=== PATIENT | male | born 1950 | race Caucasian/White ===

== ENCOUNTER 2017-06-09 16:05 | Inpatient (IN) | payer MEDICARE, OTHER ==
[~2017-06-09] VITALS: Ht 193 cm; Wt 131.2 kg
[~2017-06-09 16:05] MED LIST: ACETAMIN325 MG PO; ALLOPURINOL300 MG PO; AMLODIPINE10 MG PO; BENAZEPRIL20 M1 OR; BL MAGNESIUM250 MG PO; CIPRO500 MG OR; CYMBALTA30 MG PO; DILAUDID2 MG OR; DOCUSATE CAL240 MG PO; DULERA1 AE1 IN; FEXOFENADINE180 MG PO; FLEXERIL OR; FLUTICASONE50 MCG; KEFLEX500 MG OR; LASIX 40 MG TAB40 MG PO; LISINOPRIL20 MG PO; LOPRESSOR25 MG PO; LORTAB5 OR; LOSARTAN POT50 MG PO; MAGNESIUM-OX400 MG PO; METOLAZONE5 MG PO; NAPROSYN500 MG OR; PERCOCET 10/31 COMBO PO; PRAMIPEXOLE0.25 MG PO; PRILOSEC20 MG PO; RESTORIL30 MG OR; SIMVASTATIN10 MG PO; SPIRONOLACT25 MG PO
[2017-06-09 17:07] LABS: HEMATOCRIT 28.7 % (39.0-50.0); HEMOGLOBIN 9.5 g/dl (14.0-18.0); IMMATURE GRANULOCYTES 0.5 % (0.0-1.0); MEAN CELL VOLUME 109.5 fL CALC (80.0-100.0); MEAN CORPUSCULAR HGB 36.3 pG CALC (26.0-32.0); MEAN CORPUSCULAR HGB CONC 33.1 g/L CALC (32.0-36.0); NEUT# 10.91 thou/uL (1.82-7.42); RED BLOOD COUNT 2.62 mill/uL (4.70-6.10); RED CELL DISTRI WIDTH 15.1 % (11.5-15.5)
[2017-06-09 17:27] LABS: ALKALINE PHOSPHATASE 79 u/l (38-126); ANION GAP 17 (6-22 (CALC)); BILIRUBIN, TOTAL 0.8 mg/dL (0.0-1.4); BUN 20 mg/dL (8-23); BUN/CREATININE RATIO 20 (12-20 (CALC)); CALCIUM 9.2 mg/dL (8.4-10.2); CARBON DIOXIDE 23 mmol/l (22-30); CHLORIDE 101 mmol/l (95-108); GFR > 60 ML/MIN (>=60 (CALC)); GFR FOR AFR.AMER. > 60 ML/MIN (>=60 (CALC)); GLUCOSE 110 mg/dL (82-115); POTASSIUM 3.5 mmol/l (3.5-5.1); SGOT/AST 68 u/l (19-48); SGPT/ALT 47 u/l (11-66); SODIUM 137 mmol/l (137-146); TOTAL PROTEIN 7.2 g/dL (6.3-8.2)
[2017-06-09 17:32] LABS: PROTHROMBIN TIME 10.6 SECONDS (9.0-12.5)
[2017-06-09] MEDS ORDERED: CLOPIDOGREL75 MG PO (18:13)
[2017-06-09] MEDS ORDERED: DULERA1 AER IN (18:14)
[2017-06-09 22:45] VITALS: BP 195/80
[2017-06-09 23:00] VITALS: BP 172/97
[2017-06-09 23:15] VITALS: BP 137/98
[2017-06-09 23:30] VITALS: BP 109/70
[2017-06-09 23:45] VITALS: BP 100/74
[2017-06-10] VITALS (23 sets, daily range): BP systolic 111–153; BP diastolic 65–86
[2017-06-10 05:33] LABS: HEMATOCRIT 26.4 % (39.0-50.0); HEMOGLOBIN 8.8 g/dl (14.0-18.0); MEAN CELL VOLUME 110.5 fL CALC (80.0-100.0); MEAN CORPUSCULAR HGB 36.8 pG CALC (26.0-32.0); MEAN CORPUSCULAR HGB CONC 33.3 g/L CALC (32.0-36.0); RED BLOOD COUNT 2.39 mill/uL (4.70-6.10); RED CELL DISTRI WIDTH 15.4 % (11.5-15.5)
[2017-06-10 05:36] LABS: ANION GAP 15 (6-22 (CALC)); BUN 17 mg/dL (8-23); BUN/CREATININE RATIO 20 (12-20 (CALC)); CALCIUM 8.5 mg/dL (8.4-10.2); CARBON DIOXIDE 23 mmol/l (22-30); CHLORIDE 105 mmol/l (95-108); CREATININE 0.9 mg/dL (0.7-1.3); GFR > 60 ML/MIN (>=60 (CALC)); GFR FOR AFR.AMER. > 60 ML/MIN (>=60 (CALC)); GLUCOSE 115 mg/dL (82-115); MAGNESIUM 2.2 mg/dL (1.6-2.3); POTASSIUM 3.5 mmol/l (3.5-5.1); SODIUM 140 mmol/l (137-146)
[2017-06-10 06:06] LABS: TSH, 3RD GENERATION 1.86 uIU/mL (0.47 - 4.68)
[2017-06-11] VITALS (10 sets, daily range): BP systolic 112–142; BP diastolic 61–91
[2017-06-11 05:33] LABS: HEMOGLOBIN 8.8 g/dl (14.0-18.0); MEAN CORPUSCULAR HGB 36.8 pG CALC (26.0-32.0); MEAN CORPUSCULAR HGB CONC 32.6 g/L CALC (32.0-36.0); RED BLOOD COUNT 2.39 mill/uL (4.70-6.10); RED CELL DISTRI WIDTH 15.6 % (11.5-15.5)
[2017-06-11 05:48] LABS: ANION GAP 15 (6-22 (CALC)); BUN 14 mg/dL (8-23); BUN/CREATININE RATIO 18 (12-20 (CALC)); CALCIUM 8.9 mg/dL (8.4-10.2); CARBON DIOXIDE 25 mmol/l (22-30); CHLORIDE 105 mmol/l (95-108); CREATININE 0.7 mg/dL (0.7-1.3); GFR > 60 ML/MIN (>=60 (CALC)); GFR FOR AFR.AMER. > 60 ML/MIN (>=60 (CALC)); GLUCOSE 100 mg/dL (82-115); MAGNESIUM 2.1 mg/dL (1.6-2.3); POTASSIUM 3.5 mmol/l (3.5-5.1); SODIUM 142 mmol/l (137-146)
[2017-06-12] VITALS (21 sets, daily range): BP systolic 115–171; BP diastolic 54–98
[2017-06-12 05:46] LABS: HEMOGLOBIN 8.5 g/dl (14.0-18.0); MEAN CELL VOLUME 111.6 fL CALC (80.0-100.0); MEAN CORPUSCULAR HGB 36.5 pG CALC (26.0-32.0); MEAN CORPUSCULAR HGB CONC 32.7 g/L CALC (32.0-36.0); RED BLOOD COUNT 2.33 mill/uL (4.70-6.10); RED CELL DISTRI WIDTH 15.4 % (11.5-15.5)
[2017-06-12 06:01] LABS: ANION GAP 14 (6-22 (CALC)); BUN 16 mg/dL (8-23); BUN/CREATININE RATIO 19 (12-20 (CALC)); CALCIUM 8.9 mg/dL (8.4-10.2); CARBON DIOXIDE 24 mmol/l (22-30); CHLORIDE 105 mmol/l (95-108); CREATININE 0.8 mg/dL (0.7-1.3); GFR > 60 ML/MIN (>=60 (CALC)); GFR FOR AFR.AMER. > 60 ML/MIN (>=60 (CALC)); GLUCOSE 112 mg/dL (82-115); POTASSIUM 3.7 mmol/l (3.5-5.1); SODIUM 140 mmol/l (137-146)
[2017-06-13] VITALS (9 sets, daily range): BP systolic 115–148; BP diastolic 68–96
[2017-06-13 05:48] LABS: HEMATOCRIT 27.2 % (39.0-50.0); HEMOGLOBIN 8.8 g/dl (14.0-18.0); IMMATURE GRANULOCYTES 0.9 % (0.0-1.0); MEAN CELL VOLUME 111.9 fL CALC (80.0-100.0); MEAN CORPUSCULAR HGB 36.2 pG CALC (26.0-32.0); MEAN CORPUSCULAR HGB CONC 32.4 g/L CALC (32.0-36.0); NEUT# 4.08 thou/uL (1.82-7.42); RED BLOOD COUNT 2.43 mill/uL (4.70-6.10); RED CELL DISTRI WIDTH 15.3 % (11.5-15.5)
[2017-06-13 06:01] LABS: ANION GAP 14 (6-22 (CALC)); BUN 14 mg/dL (8-23); BUN/CREATININE RATIO 15 (12-20 (CALC)); CALCIUM 9.2 mg/dL (8.4-10.2); CARBON DIOXIDE 27 mmol/l (22-30); CHLORIDE 106 mmol/l (95-108); CREATININE 0.9 mg/dL (0.7-1.3); GFR > 60 ML/MIN (>=60 (CALC)); GFR FOR AFR.AMER. > 60 ML/MIN (>=60 (CALC)); GLUCOSE 102 mg/dL (82-115); MAGNESIUM 1.8 mg/dL (1.6-2.3); SODIUM 143 mmol/l (137-146)
[2017-06-13] MEDS ORDERED: ACETAZOLAMIDE250 MG PO (10:35)
[2017-06-13] MEDS ORDERED: HYDRALAZINE50 MG PO (10:35)
[2017-06-14 04:00] VITALS: BP 147/89
[2017-06-14 07:34] VITALS: BP 164/84
[2017-06-14 07:38] LABS: ANION GAP 14 (6-22 (CALC)); BUN 14 mg/dL (8-23); BUN/CREATININE RATIO 14 (12-20 (CALC)); CALCIUM 9.1 mg/dL (8.4-10.2); CARBON DIOXIDE 29 mmol/l (22-30); CHLORIDE 103 mmol/l (95-108); GFR > 60 ML/MIN (>=60 (CALC)); GFR FOR AFR.AMER. > 60 ML/MIN (>=60 (CALC)); GLUCOSE 96 mg/dL (82-115); MAGNESIUM 1.8 mg/dL (1.6-2.3); POTASSIUM 3.6 mmol/l (3.5-5.1); SODIUM 142 mmol/l (137-146)
[2017-06-14] MEDS ORDERED: LASIX 40 MG TAB40 MG PO (10:31)
[2017-06-14] MEDS ORDERED: THIAMINE HCL100 MG PO (10:31)
[2017-06-14] MEDS ORDERED: ELIQUIS2.5 MG PO (10:31)
[2017-06-14] MEDS ORDERED: AUGMENTIN875TAB PO (10:33)
[2017-06-14] MEDS ORDERED: FLORASTOR250 M1 PO (10:33)
[2017-06-14] MEDS ORDERED: DOXYCYCL HYC100 MG PO (10:33)
[2017-06-14] MEDS ORDERED: METOPROL TAR100 MG PO (11:03)
[2017-06-14] MEDS ORDERED: CORDARONE/200 MG/TAB PO ×2 (11:03)
[2017-06-14] MEDS ORDERED: LIBRIUM25 M1 PO (11:03)
[2017-06-14] MEDS ORDERED: PANTOPRAZOLE SO40 M1 PO (11:03)
[2017-06-14] MEDS ORDERED: ELIQUIS5 MG PO (11:07)
[2017-06-14 11:43] VITALS: BP 148/75
[2017-06-14 14:35] VITALS: BP 148/75
== END 2017-06-14 14:55 | DRG 871 ==
LOC: ED 16:05 → ED-I 21:21 → ED 21:58 → ICU 21:59 → MS2 06-13 14:45
PROVIDERS: Family Medicine; Internal Medicine; Nurse Practitioner Family; ADMIT Internal Medicine; ATTEND Internal Medicine
DX: A41.9 Sepsis, unspecified organism (principal); G93.41 Metabolic encephalopathy; I48.91 Unspecified atrial fibrillation; I27.2 Other secondary pulmonary hypertension; L03.116 Cellulitis of left lower limb; F10.239 Alcohol dependence with withdrawal, unspecified; I10 Essential (primary) hypertension; I25.10 Atherosclerotic heart disease of native coronary artery without angina pectoris; E78.5 Hyperlipidemia, unspecified; M15.9 Polyosteoarthritis, unspecified; J44.9 Chronic obstructive pulmonary disease, unspecified; R65.20 Severe sepsis without septic shock; S81.812A Laceration without foreign body, left lower leg, initial encounter; D64.9 Anemia, unspecified; Z96.0 Presence of urogenital implants; W19.XXXA Unspecified fall, initial encounter; Z87.11 Personal history of peptic ulcer disease; Z85.46 Personal history of malignant neoplasm of prostate; Z95.5 Presence of coronary angioplasty implant and graft; Z87.891 Personal history of nicotine dependence; Z79.82 Long term (current) use of aspirin; Z79.02 Long term (current) use of antithrombotics/antiplatelets
CPT/HCPCS: J0282; J2060; J3370

== ENCOUNTER 2017-06-22 13:09 | Observation (INO) | payer MEDICARE, OTHER ==
[~2017-06-22] VITALS: Ht 193 cm; Wt 130.0 kg
[~2017-06-22 13:09] MED LIST changes: +ACETAZOLAMIDE250 MG PO; +AUGMENTIN875TAB PO; +CLOPIDOGREL75 MG PO; +CORDARONE/200 MG/TAB PO; +DOXYCYCL HYC100 MG PO; +DULERA1 AER IN; +ELIQUIS2.5 MG PO; +ELIQUIS5 MG PO; +FLORASTOR250 M1 PO; +HYDRALAZINE50 MG PO; +LIBRIUM25 M1 PO; +METOPROL TAR100 MG PO; +PANTOPRAZOLE SO40 M1 PO; +THIAMINE HCL100 MG PO
[2017-06-22 17:01] LABS: HEMATOCRIT 26.1 % (39.0-50.0); HEMOGLOBIN 8.2 g/dl (14.0-18.0); IMMATURE GRANULOCYTES 0.7 % (0.0-1.0); MEAN CORPUSCULAR HGB 35.8 pG CALC (26.0-32.0); MEAN CORPUSCULAR HGB CONC 31.4 g/L CALC (32.0-36.0); NEUT# 11.89 thou/uL (1.82-7.42); RED BLOOD COUNT 2.29 mill/uL (4.70-6.10); RED CELL DISTRI WIDTH 15.5 % (11.5-15.5)
[2017-06-22 17:11] LABS: ACT PARTIAL THROMBO TIME 34.1 SECONDS (20.0-32.5); INTERNATIONAL NORMALIZED RATIO 1.2 RATIO (0.7-1.3); PROTHROMBIN TIME 13.1 SECONDS (9.0-12.5)
[2017-06-22 17:36] LABS: ALBUMIN 3.3 g/dL (3.2-5.0); BILIRUBIN, TOTAL 0.8 mg/dL (0.0-1.4); CALCIUM 8.9 mg/dL (8.4-10.2); CREATININE 1.7 mg/dL (0.7-1.3); POTASSIUM 3.9 mmol/l (3.5-5.1); TOTAL PROTEIN 6.8 g/dL (6.3-8.2)
[2017-06-22] MEDS ORDERED: ASPIRIN 8181 MG PO (18:28)
[2017-06-22] MEDS ORDERED: DIPHENHYDRAM25 MG PO (18:32)
[2017-06-22] MEDS ORDERED: COMBIVENT RESPIMAT IN (18:34)
[2017-06-22 19:20] VITALS: BP 137/88
[2017-06-22 22:47] LABS: URINE BILIRUBIN - DIPSTICK NEGATIVE (NEGATIVE); URINE BLOOD DIPSTICK NEGATIVE (NEGATIVE); URINE CLARITY SLIGHT CLOUDY; URINE COLOR YELLOW; URINE GLUCOSE - DIPSTICK NEGATIVE (NEGATIVE); URINE KETONE NEGATIVE (NEGATIVE); URINE LEUK ESTERASE NEGATIVE (Negative); URINE NITRITE - DIPSTICK NEGATIVE (Negative); URINE PH 7.5 (4.5-8.0); URINE PROTEIN - DIPSTICK TRACE mg/dL (NEG-TRACE); URINE UROBILINOGEN - DIPSTICK 0.2 E.U./dL (0.2)
[2017-06-23 04:35] VITALS: BP 111/72
[2017-06-23 06:30] LABS: HEMATOCRIT 22.9 % (39.0-50.0); HEMOGLOBIN 7.2 g/dl (14.0-18.0); IMMATURE GRANULOCYTES 0.7 % (0.0-1.0); MEAN CELL VOLUME 112.8 fL CALC (80.0-100.0); MEAN CORPUSCULAR HGB 35.5 pG CALC (26.0-32.0); MEAN CORPUSCULAR HGB CONC 31.4 g/L CALC (32.0-36.0); NEUT# 10.27 thou/uL (1.82-7.42); RED BLOOD COUNT 2.03 mill/uL (4.70-6.10); RED CELL DISTRI WIDTH 15.5 % (11.5-15.5)
[2017-06-23 06:41] LABS: ANION GAP 14 (6-22 (CALC)); BUN 20 mg/dL (8-23); BUN/CREATININE RATIO 16 (12-20 (CALC)); CALCIUM 8.6 mg/dL (8.4-10.2); CARBON DIOXIDE 26 mmol/l (22-30); CHLORIDE 104 mmol/l (95-108); CREATININE 1.3 mg/dL (0.7-1.3); GFR 55 ML/MIN (>=60 (CALC)); GFR FOR AFR.AMER. > 60 ML/MIN (>=60 (CALC)); GLUCOSE 89 mg/dL (82-115); POTASSIUM 3.8 mmol/l (3.5-5.1); SODIUM 140 mmol/l (137-146)
[2017-06-23] MEDS ORDERED: SURFAK240 MG/CAP PO (11:42)
[2017-06-23] MEDS ORDERED: LASIX 40 MG TAB40 MG PO (11:42)
[2017-06-23 16:02] VITALS: BP 114/71
[2017-06-23 16:05] VITALS: BP 114/71
[2017-06-23 16:35] VITALS: BP 113/83
[2017-06-23 17:30] VITALS: BP 131/79
== END 2017-06-23 18:20 | disposition home or self-care (01) ==
LOC: ED 13:09 → ED-I 17:38 → ED 18:05 → MS2 18:06
PROVIDERS: Emergency Medicine; ADMIT Internal Medicine; ATTEND Internal Medicine
PROC: 30233N1 Transfusion of Nonautologous Red Blood Cells into Peripheral Vein, Percutaneous Approach (ICD-10-PCS; principal; 2017-06-23)
DX: S37.92XA Contusion of unspecified urinary and pelvic organ, initial encounter (principal); D62 Acute posthemorrhagic anemia; N17.9 Acute kidney failure, unspecified; S40.012A Contusion of left shoulder, initial encounter; S30.1XXA Contusion of abdominal wall, initial encounter; I10 Essential (primary) hypertension; F32.9 Major depressive disorder, single episode, unspecified; I25.10 Atherosclerotic heart disease of native coronary artery without angina pectoris; E78.5 Hyperlipidemia, unspecified; F10.10 Alcohol abuse, uncomplicated; M15.9 Polyosteoarthritis, unspecified; J44.9 Chronic obstructive pulmonary disease, unspecified; W19.XXXA Unspecified fall, initial encounter; Z79.02 Long term (current) use of antithrombotics/antiplatelets; Z79.82 Long term (current) use of aspirin; Z85.46 Personal history of malignant neoplasm of prostate; Z96.0 Presence of urogenital implants; Z79.01 Long term (current) use of anticoagulants; Z87.891 Personal history of nicotine dependence; Z95.5 Presence of coronary angioplasty implant and graft
CPT/HCPCS: P9016

== ENCOUNTER 2017-12-17 11:45 | Observation (INO) | payer MEDICARE, OTHER ==
[~2017-12-17] VITALS: Ht 182.9 cm; Wt 121.8 kg
[~2017-12-17 11:45] MED LIST changes: +ASPIRIN 8181 MG PO; -CLOPIDOGREL75 MG PO; +COMBIVENT RESPIMAT IN; +DIPHENHYDRAM25 MG PO; +PROCRIT 1010000 U/ML SC; +RESTORIL15 MG PO; -RESTORIL30 MG OR; +SURFAK240 MG/CAP PO
--- NOTE | 2017-12-17 11:46 | NUR ---
TO TX ROOM VIA W/C
[2017-12-17 12:52] LABS: ALBUMIN 4.2 g/dL (3.2-5.0); ALKALINE PHOSPHATASE 126 u/l (38-126); ANION GAP 15 (6-22 (CALC)); BILIRUBIN, TOTAL 0.6 mg/dL (0.0-1.4); BUN 30 mg/dL (8-23); BUN/CREATININE RATIO 29 (12-20 (CALC)); CARBON DIOXIDE 29 mmol/l (22-30); CHLORIDE 98 mmol/l (95-108); GFR > 60 ML/MIN (>=60 (CALC)); GFR FOR AFR.AMER. > 60 ML/MIN (>=60 (CALC)); POTASSIUM 4.8 mmol/l (3.5-5.1); SGOT/AST 35 u/l (19-48); SGPT/ALT 22 u/l (11-66); SODIUM 137 mmol/l (137-146); TOTAL PROTEIN 7.8 g/dL (6.3-8.2)
[2017-12-17 12:54] LABS: HEMATOCRIT 26.1 % (39.0-50.0); IMMATURE GRANULOCYTES 0.2 % (0.0-1.0); MEAN CELL VOLUME 99.2 fL CALC (80.0-100.0); MEAN CORPUSCULAR HGB 30.4 pG CALC (26.0-32.0); MEAN CORPUSCULAR HGB CONC 30.7 g/L CALC (32.0-36.0); NEUT# 2.59 thou/uL (1.82-7.42); RED BLOOD COUNT 2.63 mill/uL (4.70-6.10); RED CELL DISTRI WIDTH 20.1 % (11.5-15.5)
[2017-12-17 13:05] LABS: MYOGLOBIN 52 ng/mL (0 - 121)
[2017-12-17] MEDS ORDERED: FUROSEMIDE40 MG PO (13:42)
[2017-12-17] MEDS ORDERED: AMIODARONE200 MG PO (13:43)
[2017-12-17] MEDS ORDERED: ALLEGRA180 MG PO (13:48)
[2017-12-17] MEDS ORDERED: LIPITOR20 MG PO (13:51)
[2017-12-17] MEDS ORDERED: ENTRESTO 49-511 TAB PO (13:52)
[2017-12-17] MEDS ORDERED: LEVOTHYROXIN100 MC1 PO (13:53)
[2017-12-17] MEDS ORDERED: TIZANIDINE2 MG PO (13:55)
[2017-12-17] MEDS ORDERED: VITAMIN B-12500 MCG PO (13:55)
[2017-12-17] MEDS ORDERED: XTAMPZA ER13.5 MG PO (13:56)
[2017-12-17] MEDS ORDERED: DYNACIN100 MG PO (13:57)
--- NOTE | 2017-12-17 15:30 | NUR ---
PT TO ROOM 283 WITHOUT INCIDENT. REPORT WAS TO TANNER SCHWARTZ.
--- NOTE | 2017-12-17 15:35 | NUR ---
FROM ER VIA STRETCHER ACCOMPANIED BY AND MINDY RN. AMBULATED TO BED WITH STAND BY ASSIST. RESPS EVEN AND UNLABORED ON ROOM AIR, TELE MONITOR IN PLACE. BRUISING NOTED TO LEFT SIDE. MULTIPLE DRESSINGS NOTED TO BILAT LOWER EXTREMITIES. DENIES PAIN OR DISCOMFORT. ORIENTED TO ROOM AND CALL SYSTEM. PO FLUIDS OFFERED. SAFETY PRECAUTIONS REINFORCED. BED IN LOWEST POSITION WITH WHEELS LOCKED. CALL LIGHT WITHIN REACH. ENCOURAGED PT AND TO CALL FOR ANY NEEDS.
[2017-12-17 15:36] LABS: URINE BILIRUBIN - DIPSTICK NEGATIVE (NEGATIVE); URINE BLOOD DIPSTICK NEGATIVE (NEGATIVE); URINE CLARITY CLEAR; URINE COLOR YELLOW; URINE GLUCOSE - DIPSTICK NEGATIVE (NEGATIVE); URINE KETONE NEGATIVE (NEGATIVE); URINE LEUK ESTERASE NEGATIVE (NEGATIVE); URINE NITRITE - DIPSTICK NEGATIVE (Negative); URINE PROTEIN - DIPSTICK NEGATIVE (NEG-TRACE); URINE UROBILINOGEN - DIPSTICK 0.2 E.U./dL (0.2)
[2017-12-17 15:47] VITALS: BP 119/82
--- NOTE | 2017-12-17 17:01 | NUR ---
SITTING IN BEDSIDE CHAIR, AT BEDSIDE. RESPS EVEN AND UNLABORED ON ROOM AIR, TELE MONITOR IN PLACE. MEDICATED WITH PERCOCET PO FOR C/O 8/10 GENERALIZED PAIN. PO FLUIDS OFFERED. CALL LIGHT WITHIN REACH. ENCOURAGED PT AND TO CALL FOR ANY NEEDS.
--- NOTE | 2017-12-17 18:00 | NUR ---
DR CARSON IN WITH PT, NEW ORDERS RECEIVED.
[2017-12-17 19:40] VITALS: BP 106/73
--- NOTE | 2017-12-17 20:00 | NUR ---
PATIENT SITTING UP IN THE RECLINER-AWAKE ALERT AND ORIENTEDX3. LEGS ELEVATED. MULTIPLE DRESSING TO BLE INTACT-WILL BE CHANGED IN AM BY CROTCH BREAKER PER REPORT. BLE EDEMA NOTED. HEP LOCK TO LEFT AC INTACT WITH GOOD BLOOD RETURN. TELE MONITORING DEVICE IN PLACE. SAFETY PRECAUTIONS REINFORCED.CALL LIGHT IN REACH. WILL CONT TO MONITOR.
--- NOTE | 2017-12-17 21:00 | NUR ---
PATIENT C/O BACK AND NECK PAIN. MEDICATED WITH PERCOCET 10/325MG PO ORDERED FOR PAIN. PATIENT IS NOW BACK IN BED. CALL LIGHT IN REACH. WILL CONT TO MONITOR.
--- NOTE | 2017-12-17 23:00 | NUR ---
PATIENT MEDICATED WITH RESTORIL 30MG PO FOR SLEEP. CALL LIGHT IN REACH. WILL CONT TO MONITOR.
[2017-12-17 23:38] VITALS: BP 137/69
[2017-12-18 00:20] VITALS: BP 130/79
--- NOTE | 2017-12-18 00:30 | NUR ---
RECIEVED CALL FROM FANI IN ER-STATES THAT PATIENT HAD RYTHM CHANGE AND IS NOW A-FIB. PATIENT RESTING IN BED WITH NO COMPLAINTS AT THIS TIME. ASYMPTOMATIC. VS CHECKED AND RECORDED. EKG DONE AT BEDSIDE. CALL LIGHT IN REACH. WILL CONT TO MONITOR.
--- NOTE | 2017-12-18 01:59 | NUR ---
PATIENT RESTING IN BED-C/O MULTIPLE PAIN SOURCES INCLUDING HIS NECK, BACK, SHOULDERS, FEET AND LEGS. MEDICATED WITH PERCOCET 10/325MG PO FOR PAIN. SAFETY PRECAUTIONS REINFORCED.CALL LIGHT IN REACH. WILL CONT TO MONITOR.
[2017-12-18 03:05] VITALS: BP 128/80
--- NOTE | 2017-12-18 05:00 | NUR ---
PATIENT RESTING IN BED-REINFORCED TO PATIENT THAT WE DO NEED STOOL SPEC IF AND WHEN HE IS ABLE TO PROVIDE SAMPLE. VERBALIZES UNDERSTANDING OF THE STATED. PATIENT HAS NO SLEPT MUCH TONIGHT. CALL LIGHT IN REACH. WILL CONT TO MONITOR.
[2017-12-18 06:03] LABS: HEMATOCRIT 26.3 % (39.0-50.0); HEMOGLOBIN 8.3 g/dl (14.0-18.0); IMMATURE GRANULOCYTES 0.2 % (0.0-1.0); MEAN CORPUSCULAR HGB 30.6 pG CALC (26.0-32.0); MEAN CORPUSCULAR HGB CONC 31.6 g/L CALC (32.0-36.0); NEUT# 2.73 thou/uL (1.82-7.42); RED BLOOD COUNT 2.71 mill/uL (4.70-6.10); RED CELL DISTRI WIDTH 19.5 % (11.5-15.5)
[2017-12-18 06:16] LABS: ANION GAP 16 (6-22 (CALC)); BUN 24 mg/dL (8-23); BUN/CREATININE RATIO 26 (12-20 (CALC)); CALCULATED LDLCHOLESTEROL 47 mg/dL (62-129 (CALC)); CARBON DIOXIDE 30 mmol/l (22-30); CHLORIDE 96 mmol/l (95-108); CREATININE 0.9 mg/dL (0.7-1.3); GFR > 60 ML/MIN (>=60 (CALC)); GFR FOR AFR.AMER. > 60 ML/MIN (>=60 (CALC)); HDL CHOLESTEROL 59 mg/dL (>=40); MAGNESIUM 1.8 mg/dL (1.6-2.3); POTASSIUM 4.5 mmol/l (3.5-5.1); SODIUM 138 mmol/l (137-146); TOTAL CHOLESTEROL 116 mg/dl (0-199); TOTAL TRIGLYCERIDES 54 mg/dl (30-149); VLDL CHOLESTROL 11 mg/dl (4-45 (CALC))
--- NOTE | 2017-12-18 07:00 | NUR ---
RECEIVED BEDSIDE REPORT FROM ADALBERTO SCHWARTZ. RESTING IN BED WITH EYES CLOSED, AWAKENS EASILY. RESPS EVEN AND UNLABORED ON ROOM AIR, TELE MONITOR IN PLACE. DENIES PAIN OR DISCOMFORT. PLAN OF CARE DISCUSSED. SAFETY PRECAUTIONS REINFORCED. BED IN LOWEST POSITION WITH WHEELS LOCKED. CALL LIGHT WITHIN REACH. ENCOURAGED PT TO CALL FOR ANY NEEDS.
[2017-12-18 08:41] VITALS: BP 109/37
[2017-12-18 11:00] VITALS: BP 133/60
--- NOTE | 2017-12-18 11:41 | NUR ---
Vancomycin consult Age: 67 years Weight: 121.4 kg Height: 193 cm Gender: Male SCR: 0.9 mg/dl Dosing weight: 100.64 kg IBW: 86.80 kg CRCL (ml/min): 99.1 Hernan (hr-1): 0.087 Half-life (hrs): 7.97 Vd (liters): 84.98 (factor: 0.7 L/kg) Vancomycin 1250 mg q8 hrs to produce a predicted peak of 27 mcg/ml and a predicted trough of 16 mcg/ml based on (Population-based pharmacokinetic analysis).
--- NOTE | 2017-12-18 11:49 | NUR ---
saw pt for med education. Pt had questions regarding pain therapy, especially therapeutic sub with xtampza. Explained to pt and that because pt is monitored here, we can give IR formulations safely instead. Pt states he wants to talk to Dr. Simmons after d/c to reevaluate his pain therapy. Pt had no further questions or concerns.
--- NOTE | 2017-12-18 12:10 | NUR ---
SITTING IN BEDSIDE CHAIR. RESPS EVEN AND UNLABORED ON ROOM AIR, TELE MONITOR IN PLACE. AT BEDSIDE. VOICES NO NEEDS AT THIS TIME. DR BLANCO IN WITH PT, NEW ORDERS RECEIVED. CALL LIGHT LORI DEWITT. ENCOURAGED PT AND TO CALL FOR ANY NEEDS.
--- NOTE | 2017-12-18 13:05 | NUR ---
MEDICATED WITH PERCOCET PO FOR C/O 05/17 GENERALIZED PAIN.
[2017-12-18 16:00] VITALS: BP 144/78
--- NOTE | 2017-12-18 16:00 | NUR ---
SITTING IN BEDSIDE CHAIR. AT BEDSIDE. ULCERS TO BILAT LOWER EXTREMITIES CLEANSED WITH NS AFTER SHOWER. PATTED DRY, COLLAGEN POWDER APPLIED, NON ADHERENT DRESSING APPLIED. TOLERATED WITHOUT DIFFICULTY. CALL LIGHT WITHIN REACH. WILL CONTINUE TO MONITOR.
[2017-12-18 20:55] VITALS: BP 136/77
--- NOTE | 2017-12-19 00:03 | NUR ---
PATIENT SITTING UP ON THE SIDE OF THE BED-C/O PAIN TO BACK, NECK, SHOULDERS, LEGS AND FEET. MEDICATED WITH PERCOCET 10/325MG PO FOR 8/10 ON PAIN SCALE. IV VANCO IS FINISHING AND HEP LOCK TO LEFT AC FLUSHED PER PROTOCOL. ZOSYN HUNG ORDERED. IV SITE APPEARS HEALTHY WITH GOOD BLOOD RETURN. TELE MONITORING DEVICE IN PLACE ORDERED. SAFETY PRECAUTIONS REINFORCED.CALL LIGHT IN REACH. WILL CONT TO MONITOR.
[2017-12-19 00:30] VITALS: BP 145/88
--- NOTE | 2017-12-19 04:11 | NUR ---
APPEARS SLEEPING AT THIS TIME WITH EYES CLOSED. CALL LIGHT IN REACH. WILL CONT TO MONITOR.
[2017-12-19 04:35] VITALS: BP 113/69; BP 162/76
[2017-12-19 06:12] LABS: HEMATOCRIT 27.3 % (39.0-50.0); HEMOGLOBIN 8.6 g/dl (14.0-18.0); IMMATURE GRANULOCYTES 0.4 % (0.0-1.0); MEAN CELL VOLUME 96.5 fL CALC (80.0-100.0); MEAN CORPUSCULAR HGB 30.4 pG CALC (26.0-32.0); MEAN CORPUSCULAR HGB CONC 31.5 g/L CALC (32.0-36.0); NEUT# 3.72 thou/uL (1.82-7.42); RED BLOOD COUNT 2.83 mill/uL (4.70-6.10); RED CELL DISTRI WIDTH 19.4 % (11.5-15.5)
[2017-12-19 06:31] LABS: ANION GAP 18 (6-22 (CALC)); BUN 21 mg/dL (8-23); BUN/CREATININE RATIO 22 (12-20 (CALC)); CARBON DIOXIDE 29 mmol/l (22-30); CHLORIDE 96 mmol/l (95-108); GFR > 60 ML/MIN (>=60 (CALC)); GFR FOR AFR.AMER. > 60 ML/MIN (>=60 (CALC)); POTASSIUM 3.6 mmol/l (3.5-5.1); SODIUM 139 mmol/l (137-146)
--- NOTE | 2017-12-19 07:00 | NUR ---
RECEIVED BEDSIDE REPORT FROM ADALBERTO SCHWARTZ. SITTING IN BEDSIDE CHAIR. RESPS EVEN AND UNLABORED ON ROOM AIR, TELE MONITOR IN PLACE. #20 LAC INFUSING VANCO WITHOUT DIFFICULTY, SITE APPEARS HEALTHY. VOICES NO NEEDS AT THIS TIME. PLAN OF CARE DISCUSSED. SAFETY PRECAUTIONS REINFORCED. BED IN LOWEST POSITION WITH WHEELS LOCKED. CALL LIGHT WITHIN REACH. WILL CONTINUE TO MONITOR.
[2017-12-19 07:58] VITALS: BP 134/73
--- NOTE | 2017-12-19 09:45 | NUR ---
SITTING IN BEDSIDE CHAIR, RESPS EVEN AND UNLABORED ON ROOM AIR, TELE MONITOR IN PLACE. MEDICATED WITH PERCOCET PO FOR C/O 7/10 GENERALIZED PAIN. PO FLUIDS OFFERED. CALL LIGHT WITHIN REACH. WILL CONTINUE TO MONITOR.
[2017-12-19 11:00] VITALS: BP 145/73
--- NOTE | 2017-12-19 13:00 | NUR ---
SITTING IN BEDSIDE CHAIR, RESPS EVEN AND UNLABORED ON ROOM AIR, TELE MONITOR IN PLACE. VOICES NO NEEDS AT THIS TIME. DR BLANCO IN WITH PT, NEW ORDERS RECEIVED. CALL LIGHT WITHIN REACH. WILL CONNTINUE TO MONITOR.
--- NOTE | 2017-12-19 13:40 | NUR ---
MEDICATED WITH PERCOCET PO FOR C/O 6/10 GENERALIZED PAIN.
--- NOTE | 2017-12-19 14:30 | NUR ---
DR CARSON IN WITH PT, AWAITING NEW ORDERS.
[2017-12-19 16:00] VITALS: BP 152/69
[2017-12-19] MEDS ORDERED: CLOPIDOGREL75 MG PO (16:55)
[2017-12-19] MEDS ORDERED: PLAVIX75 MG PO (17:00)
[2017-12-19] MEDS ORDERED: BUMEX1 M1 PO (17:01)
[2017-12-19 17:44] VITALS: BP 152/69
--- NOTE | 2017-12-19 17:44 | NUR ---
MEDICATED WITH PERCOCET PO FOR C/O 05/17 GENERALIZED PAIN.
--- NOTE | 2017-12-19 18:14 | NUR ---
IV site discontinued, cath intact. No edema , no redness, voices no discomfort.
--- NOTE | 2017-12-19 18:22 | NUR ---
Discharge instructions given. Patient verbalizes understanding of same. Discharged in stable condition via Wheelchair to Home with spouse. All belongings sent with pt.
== END 2017-12-19 18:21 | disposition home or self-care (01) ==
LOC: ED 11:45 → ED-I 14:00 → ED 14:50 → MS2 14:51
PROVIDERS: Emergency Medicine; Nurse Practitioner Family; ADMIT Internal Medicine; ATTEND Internal Medicine
DX: I11.0 Hypertensive heart disease with heart failure (principal); I50.33 Acute on chronic diastolic (congestive) heart failure; R07.9 Chest pain, unspecified; I25.10 Atherosclerotic heart disease of native coronary artery without angina pectoris; I48.2 Chronic atrial fibrillation; J44.9 Chronic obstructive pulmonary disease, unspecified; E78.5 Hyperlipidemia, unspecified; M15.9 Polyosteoarthritis, unspecified; F10.11 Alcohol abuse, in remission; D50.9 Iron deficiency anemia, unspecified; L03.115 Cellulitis of right lower limb; L03.116 Cellulitis of left lower limb; G89.4 Chronic pain syndrome; I87.8 Other specified disorders of veins; Z79.01 Long term (current) use of anticoagulants; Z87.891 Personal history of nicotine dependence; Z96.652 Presence of left artificial knee joint; Z95.5 Presence of coronary angioplasty implant and graft; Z85.46 Personal history of malignant neoplasm of prostate
CPT/HCPCS: J3370; Q0138

== ENCOUNTER → 2018-01-23 | Day surgery (SDC) | payer MEDICARE, OTHER ==
[~2018-01-23] VITALS: Ht 193 cm; Wt 120.2 kg
[~2018-01-23] MED LIST changes: +ALLEGRA180 MG PO; +AMIODARONE200 MG PO; +BENADRYL 25MG C25 MG PO; +BUMETANIDE1 MG PO; +BUMEX1 M1 PO; +CLOPIDOGREL75 MG PO; +DYNACIN100 MG PO; +ENTRESTO 24-261 TAB PO; +ENTRESTO 49-511 TAB PO; +FLONASE AL50 MCG/ACT; +FUROSEMIDE40 MG PO; +KLOR-CON M2020 MEQ PO; +LEVOTHYROXIN100 MC1 PO; +LEVOTHYROXIN125 MC1 PO; +LIPITOR20 MG PO; +LOPRESSOR50 M1 PO; +MAG PO; +METOLAZONE2.5 MG PO; +PLAVIX75 MG PO; +TIZANIDINE2 MG PO; +VITAMIN B-12500 MCG PO; +XTAMPZA ER13.5 MG PO
[2018-01-23 11:51] VITALS: BP 144/69
== END | disposition home or self-care (01) ==
LOC: ENDO 09:43 → ORM 13:30 → ENDO 13:30
PROVIDERS: ATTEND Surgery
PROC: 0DJ08ZZ Inspection of Upper Intestinal Tract, Via Natural or Artificial Opening Endoscopic (ICD-10-PCS; principal; 2018-01-23)
PROC: 0DJD8ZZ Inspection of Lower Intestinal Tract, Via Natural or Artificial Opening Endoscopic (ICD-10-PCS; 2018-01-23)
DX: D64.9 Anemia, unspecified (principal); K44.9 Diaphragmatic hernia without obstruction or gangrene; K58.9 Irritable bowel syndrome, unspecified; K57.30 Diverticulosis of large intestine without perforation or abscess without bleeding; I25.10 Atherosclerotic heart disease of native coronary artery without angina pectoris; I10 Essential (primary) hypertension; I48.91 Unspecified atrial fibrillation; Z79.01 Long term (current) use of anticoagulants

== ENCOUNTER 2018-05-20 13:01 | Emergency (ER) | payer MEDICARE, OTHER ==
[~2018-05-20] VITALS: Ht 182.9 cm; Wt 125.0 kg
[~2018-05-20 13:01] MED LIST changes: +WARFARIN5 MG PO
[2018-05-20 14:01] LABS: HEMATOCRIT 29.1 % (39.0-50.0); HEMOGLOBIN 9.7 g/dl (14.0-18.0); IMMATURE GRANULOCYTES 0.6 % (0.0-5.0); MEAN CELL VOLUME 104.3 fL CALC (80.0-100.0); MEAN CORPUSCULAR HGB 34.8 pG CALC (26.0-32.0); MEAN CORPUSCULAR HGB CONC 33.3 g/L CALC (32.0-36.0); NEUT# 3.49 thou/uL (1.82-7.42); RED BLOOD COUNT 2.79 mill/uL (4.70-6.10); RED CELL DISTRI WIDTH 18.7 % (11.5-15.5)
[2018-05-20 14:14] LABS: ANION GAP 16 (6-22 (CALC)); BUN 29 mg/dL (8-23); BUN/CREATININE RATIO 23 (12-20 (CALC)); CARBON DIOXIDE 28 mmol/l (22-30); CHLORIDE 91 mmol/l (95-108); CREATININE 1.2 mg/dL (0.7-1.3); GFR 60 ML/MIN (>=60 (CALC)); GFR FOR AFR.AMER. > 60 ML/MIN (>=60 (CALC)); POTASSIUM 4.6 mmol/l (3.5-5.1); SODIUM 131 mmol/l (137-146)
[2018-05-20 14:50] VITALS: BP 135/73
== END 2018-05-20 14:50 | disposition home or self-care (01) ==
LOC: ED 13:01
PROVIDERS: Family Medicine
DX: Z03.89 Encounter for observation for other suspected diseases and conditions ruled out (principal); I11.0 Hypertensive heart disease with heart failure; I50.9 Heart failure, unspecified; I25.10 Atherosclerotic heart disease of native coronary artery without angina pectoris; J44.9 Chronic obstructive pulmonary disease, unspecified; M19.90 Unspecified osteoarthritis, unspecified site; E78.5 Hyperlipidemia, unspecified; F32.9 Major depressive disorder, single episode, unspecified; I48.91 Unspecified atrial fibrillation; Z95.5 Presence of coronary angioplasty implant and graft

== ENCOUNTER 2018-05-29 10:09 | Emergency (ER) | payer MEDICARE, OTHER ==
[~2018-05-29] VITALS: Ht 182.9 cm; Wt 140.0 kg
[2018-05-29] MEDS ORDERED: DOXYCYC MONO100 M1 PO (10:39)
[2018-05-29] MEDS ORDERED: VITAMIN B-12500 MC2 PO (10:47)
[2018-05-29] MEDS ORDERED: BUMETANIDE1 MG PO (10:48)
[2018-05-29] MEDS ORDERED: CLOPIDOGREL75 MG PO (10:48)
[2018-05-29 10:55] VITALS: BP 106/65
[2018-05-29] MEDS ORDERED: SILVER SULFA1 % TOP (10:57)
[2018-05-29] MEDS ORDERED: METHOCARBAM500 MG PO (11:03)
== END 2018-05-29 10:55 | disposition home or self-care (01) ==
LOC: ED 10:09
PROC: 0HQLXZZ Repair Left Lower Leg Skin, External Approach (ICD-10-PCS; principal; 2018-05-29)
DX: Z95.5 Presence of coronary angioplasty implant and graft (principal); S81.812A Laceration without foreign body, left lower leg, initial encounter; I11.0 Hypertensive heart disease with heart failure; I50.9 Heart failure, unspecified; I25.10 Atherosclerotic heart disease of native coronary artery without angina pectoris; M19.90 Unspecified osteoarthritis, unspecified site; E78.5 Hyperlipidemia, unspecified; J44.9 Chronic obstructive pulmonary disease, unspecified; I48.91 Unspecified atrial fibrillation; F32.9 Major depressive disorder, single episode, unspecified; W22.8XXA Striking against or struck by other objects, initial encounter; Y93.89 Activity, other specified; Y92.538 Other ambulatory health services establishments as the place of occurrence of the external cause

== ENCOUNTER 2018-07-22 10:16 | Inpatient (IN) | payer MEDICARE, OTHER ==
[~2018-07-22] VITALS: Ht 182.9 cm; Wt 127.3 kg
[2018-07-22] VITALS (8 sets, daily range): BP systolic 128–158; BP diastolic 83–100
[~2018-07-22 10:16] MED LIST changes: +DOXYCYC MONO100 M1 PO; +METHOCARBAM500 MG PO; +SILVER SULFA1 % TOP; +VITAMIN B-12500 MC2 PO
--- NOTE | 2018-07-22 10:18 | NUR ---
PT TO ROOM VIA WHEELCHAIR WITH 2 ASSITS TO STRETCHER. PT DENIES ANY CP OR SOB AT THIS TIME. PER PT HAS C/O SOB X 4 DAYS. PT WEARS 2 L NC AT NIGHT AND WHEN NEEDED DURING THE DAY.
--- NOTE | 2018-07-22 10:37 | NUR ---
PT STATES HAVING BILATERAL LEG PAIN AND SWELLING THAT BEGAN ON SUNDAY. PT STATES HAVING THIS OCCUR BEFORE BUT IS UNSURE OF THE CAUSE. PT IS AOX4. PT DENIES ANY C/P, SOB, N/V OR WEAKNESS. PT IS ON O2 AT HOME AT 2 LPM. BOTH LEGS ARE BANDAGED. PT AT BEDSIDE.
[2018-07-22 10:45] LABS: HEMATOCRIT 30.9 % (39.0-50.0); IMMATURE GRANULOCYTES 0.4 % (0.0-5.0); MEAN CELL VOLUME 110.4 fL CALC (80.0-100.0); MEAN CORPUSCULAR HGB 35.7 pG CALC (26.0-32.0); MEAN CORPUSCULAR HGB CONC 32.4 g/L CALC (32.0-36.0); NEUT# 5.7 thou/uL (1.82-7.42); RED BLOOD COUNT 2.8 mill/uL (4.70-6.10); RED CELL DISTRI WIDTH 14.3 % (11.5-15.5)
[2018-07-22 11:03] LABS: ANION GAP 16 (6-22 (CALC)); BUN 22 mg/dL (8-23); BUN/CREATININE RATIO 26 (12-20 (CALC)); CARBON DIOXIDE 30 mmol/l (22-30); CHLORIDE 91 mmol/l (95-108); CREATININE 0.8 mg/dL (0.7-1.3); GFR > 60 ML/MIN (>=60 (CALC)); GFR FOR AFR.AMER. > 60 ML/MIN (>=60 (CALC)); POTASSIUM 4.6 mmol/l (3.5-5.1); SODIUM 133 mmol/l (137-146)
[2018-07-22] MEDS ORDERED: CORRECTOL100 MG PO (11:10)
[2018-07-22] MEDS ORDERED: OXYCOD/APAP1 TA4 PO (11:13)
[2018-07-22 11:18] LABS: URINE BILIRUBIN - DIPSTICK NEGATIVE (NEGATIVE); URINE BLOOD DIPSTICK TRACE-INTACT (NEGATIVE); URINE COLOR YELLOW; URINE GLUCOSE - DIPSTICK NEGATIVE (NEGATIVE); URINE KETONE NEGATIVE (NEGATIVE); URINE LEUK ESTERASE NEGATIVE (NEGATIVE); URINE NITRITE - DIPSTICK NEGATIVE (Negative); URINE PROTEIN - DIPSTICK NEGATIVE (NEG-TRACE); URINE SPECIFIC GRAVITY <=1.005; URINE UROBILINOGEN - DIPSTICK 0.2 E.U./dL (0.2)
[2018-07-22 11:19] LABS: URINE CLARITY CLEAR
--- NOTE | 2018-07-22 11:36 | NUR ---
PT RESTING ON STRETCHER, IV PATENT WITH ANTIBIOTICS RUNNING. AT BEDSIDE
[2018-07-22] MEDS ORDERED: MAGNESIUM OXID250 MG PO (11:44)
[2018-07-22] MEDS ORDERED: MORPHINE SUL30 M3 PO (11:45)
[2018-07-22] MEDS ORDERED: TRIAMCINOLON0.11 EX (11:48)
[2018-07-22 12:01] LABS: INFLUENZA A NONE DETECTED (NONE DETECT); INFLUENZA B NONE DETECTED (NONE DETECT)
--- NOTE | 2018-07-22 12:31 | NUR ---
REPORT CALLED TO CAITLYN ORTIZ, ACCEPTED PT. AWAITING ADMITTING ORDERS
--- NOTE | 2018-07-22 12:53 | NUR ---
PT ARRIVED TO FLOOR VIA STRETCHER ACCOMPANIED BY LANA NOONAN AND SPOUSE;PT AMBULATED TO STANDING SCALE AND BEDSIDE WITH WEAK GAIT AND 1 PERSON ASSIST;PT ALERT AND ORIENTED X4,ORIENTED TO ROOM AND CALL LIGHT SYSTEM;PT REPORTS SOB X1 WEEK AND INCREASED CELLULITIS TO BLE,WOUND CARE SENT PT TO ER;ASSESSMENT COMPLETED;RESPIRATIONS EVEN AND UNLABORED ON 02 @ 2L VIA NC,O2 SATS @ 97%;PT IS HOME O2 DEPENDENT;EXERTIONAL SOB NOTED AT TIMES,PURSED LIP BREATHING TECHNIQUE EDUCATED AND PT DEMONSTRATES UNDERSTANDING;ABDOMEN SOFT ON PALPATION AND ACTIVE IN ALL 4 QUADRANTS,LAST BM 07/21/18;WEAK PEDAL PULSES WITH +3 EDEMA NOTED,ELEVATED BLE ON PILLOW;CELLULITIS NOTED TO BLE RED AND WARM TO TOUCH,WEEPING NOTED;REDDENING ALSO NOTED TO GROIN FOLDS,PHOTOGRAPHS IN CHART;#20G TO RAC FLUSHED AND PATENT,SITE APPEARS HEALTHY;TELE MONITOR IN PLACE;PT EDUCATED ON PAIN SCALE AND REPORTING, PAIN CURRENTLY A 8/10 ON THE PAIN SCALE TO MD ARTURO TO BE NOTIFIED;PT DENIES ANY ADDITIONAL NEEDS AT THIS TIME AND IS ENCOURAGED TO CALL FOR ASSISTANCE IF NEEDED;FALL PRECAUTIONS IN PLACE WITH CALL LIGHT IN REACH;WILL CONTINUE TO MONITOR
--- NOTE | 2018-07-22 13:01 | NUR ---
Admission Note Report Given to: CAITLYN ORTIZ Transported by: Wheelchair X Stretcher Transported with: X Nurse Transporter X Patent IV X O2 X Court Attendant TRANSPORTED TO [facility] WITHOUT INCIDENT
--- NOTE | 2018-07-22 13:30 | NUR ---
AT BEDSIDE DISCUSSING POC INCLUDING TRANSFER TO ICU.
[2018-07-22] MEDS ORDERED: MUPIROCIN21 TOP (14:36)
--- NOTE | 2018-07-22 14:59 | NUR ---
PT ARRIVED TO ICU 7 BY WC WITH . PT ABLE TO TRANSFER SELF TO BED. PT PLACED ON 2L O2 & ON MONITOR. ADMIT COMPLETED ON MSU. PT C/O 04/16 PAIN TO BILATERAL LEGS. PT GIVEN MULTIPLE BLANKET BC "ITS FUCKING FREEZING IN HERE". PT VERBALLY AGGRESSIVE TOWARD STAFF SINCE ARRIVAL. LEGS MARKED FOR REDDNESS/EDEMA. PT PREVIOUSLY PHOTOGRAPHED WOUNDS. ABD OBESE, SOFT, NONTENDER. ACTIVE BS. VEGA. BREATHING EVEN/UNLABORED. STRONG RADIAL PULSES, WEAK PEDAL PULSES.
[2018-07-22] MEDS ORDERED: DOCUSATE SOD100 M2 PO (15:01)
--- NOTE | 2018-07-22 15:05 | NUR ---
PT TRANSFERRED TO ICU BED 7 VIA WHEELCHAIR ACCOMPANIED BY WRITTER AND SPOUSE IN STABLE CONDITION.
--- NOTE | 2018-07-22 16:04 | NUR ---
PT & GIVEN WARM BLANKETS. NO OTHER NEEDS/CONCERNS AT THIS TIME. WILL CONTINUE TO MONITOR.
--- NOTE | 2018-07-22 17:15 | NUR ---
PT SLEEPING IN BED. @BEDSIDE. NO S/S OF DISTRESS.
--- NOTE | 2018-07-22 17:41 | NUR ---
HOUSE SUP TRYING TO FIND BUMEX.
--- NOTE | 2018-07-22 17:55 | NUR ---
PT WOKEN UP TO START BUMEX. PT GIVEN DINNER TRAY WHILE SITTING UP IN BED. MEDICATED FOR PAIN. PT HAPPY. WILL CONTINUE TO MONITOR. CALLBELL W/IN REACH.
--- NOTE | 2018-07-22 18:01 | NUR ---
PT ASSISTED TO BSC FOR BM. PT STATES "IT'LL BE AWILE". CONSTANTINE W/IN REACH.
--- NOTE | 2018-07-22 19:00 | NUR ---
ASSISTED PT BACK TO BED FROM BS, VOIDING 200ML OF YELLOW URINE INTO URINAL, XLARGE FORMED BM NOTED IN COMODE, ASSISTED WITH MAXI CARE. A/O X3, NOTICED TO BE SOB WITH ACTIVITY, O2 @2L VIA NC IN PLACE, O2 SAT 89%. EDEMA TO LOWER EXTREMITIES, NOTED TO BE WEAPING CLEAR FLUID, LEGS AND FEET ARE DISCOLORED. BUMEX GTT INFUSING TO RAC AT 0.5MG/HR. HEART MONITOR READING AFIB 90'S. ENCOURAGED TO USE CALL LIGHT FOR ASSISTANCE, WILL CONTINUE TO MONITOR.
--- NOTE | 2018-07-22 20:30 | NUR ---
ORDER FOR DRESSING CHANGES TO LOWER EXTREMITIES NOTED BID USING KALTOSTAT. KALTOSTAT UNAVAILABLE. DRY DRESSING APPLIED USING ABD PADS AND CURLEX.
--- NOTE | 2018-07-22 21:20 | NUR ---
TAKEN DOWNSTAIRS FOR ECHO, VIA W/C AT THIS TIME, ACCOMPANIED BY THIS WRITTER.
--- NOTE | 2018-07-22 23:00 | NUR ---
RETURNED TO ROOM VIA W/C ACCOMPANIED BY THIS WRITTER. CALL LIGHT IN REACH, RESPIRATIONS EVEN AND UNLABORED. CALL LIGHT IN REACH.
[2018-07-23] VITALS (22 sets, daily range): BP systolic 87–167; BP diastolic 59–92
--- NOTE | 2018-07-23 01:30 | NUR ---
STANDING ON SIDE OF BED WITH STANDBY ASSISTANCE, VOIDING 200ML OF YELLOW URINE, THEN BACK TO BED. BUMEX GTT INFUSING TO RAC AT 0.5MG/HR. CALL LIGHT IN REACH.
--- NOTE | 2018-07-23 04:00 | NUR ---
RESTING IN HIGHFOWLERS WITH EYES CLOSED, RESPIRATIONS EVEN AND UNLABORED ON O2 @2L VIA NC, O2 SAT 92%. BUMEX GTT INFUSING TO RAC WITH NO COMPLICATIONS, CALL LIGHT IN REACH.
[2018-07-23 06:09] LABS: HEMATOCRIT 29.6 % (39.0-50.0); HEMOGLOBIN 9.5 g/dl (14.0-18.0); IMMATURE GRANULOCYTES 0.5 % (0.0-5.0); MEAN CORPUSCULAR HGB 35.3 pG CALC (26.0-32.0); MEAN CORPUSCULAR HGB CONC 32.1 g/L CALC (32.0-36.0); NEUT# 4.28 thou/uL (1.82-7.42); RED BLOOD COUNT 2.69 mill/uL (4.70-6.10); RED CELL DISTRI WIDTH 14.5 % (11.5-15.5)
[2018-07-23 06:26] LABS: ALKALINE PHOSPHATASE 85 u/l (38-126); ANION GAP 14 (6-22 (CALC)); BILIRUBIN, TOTAL 0.5 mg/dL (0.0-1.4); BUN 22 mg/dL (8-23); BUN/CREATININE RATIO 30 (12-20 (CALC)); CARBON DIOXIDE 30 mmol/l (22-30); CHLORIDE 95 mmol/l (95-108); CREATININE 0.7 mg/dL (0.7-1.3); GFR > 60 ML/MIN (>=60 (CALC)); GFR FOR AFR.AMER. > 60 ML/MIN (>=60 (CALC)); MAGNESIUM 1.7 mg/dL (1.6-2.3); POTASSIUM 4.6 mmol/l (3.5-5.1); SGOT/AST 24 u/l (19-48); SODIUM 135 mmol/l (137-146); TOTAL PROTEIN 6.3 g/dL (6.3-8.2)
--- NOTE | 2018-07-23 07:00 | NUR ---
REPORT RECEIVED FROM DIANA RICARDO. PT SITTING UPRIGHT IN BED. SLEEPING. CALL LIGHT WITHIN REACH. NO DISTRESS NOTED.
--- NOTE | 2018-07-23 07:46 | NUR ---
S: VALENTINE ROSE is a 68 M who presents with right lower extension cellulitis. He has a history of HTN, cardiac stents, CAD, OA, hyperlidpidemia, COPD, CHF, depression, A-fib, +ETOH. All medications in patient's chart were reviewed. VS: BP <110/72>, P<120>, RR<20>,T<98.8> W 130 kg, HT29.92 cm, Scr= 0.7,CrCl= 105 ml/min A: Blood culture is pending. P: Patient is on zosyn 3.375 gm IV Q6H. Patient received 1 g IV at 1130 on 07/22 and 0030 07/23. Vancomycin ordered for pharmacy to dose. Start Vancomycin 1250 mg IV Q8H. Vancomycin trough is drawn before the 4th dose on 07/24 at 0730. Vancomycin goal trough is between 10-15 mcg/ml. Pharmacy will follow and or advise on antibiotics use as needed.
--- NOTE | 2018-07-23 08:00 | NUR ---
PT ASSISTED TO SIDE OF BED TO STAND FOR URINAL USE. 150 ML DARK YELLOW URINE NOTED. FALL PRECAUTIONS REINFORCED. CALL LIGHT REVIEWED AND IN REACH. PLAN OF CARE DISCUSSED. O2 @2L VIA NC. TELE-ST IN 120'S. DRY DRSG TO BILATERAL LOWER LEGS CDI. ELEVATION OF LEGS DISCUSSED. PT STATES UNDERSTANDING. BUMEX@ 0.5 ML/HR INFUSING TO #20 RAC. NO REDNESS/SWELLING TO SITE NOTED.
--- NOTE | 2018-07-23 11:15 | NUR ---
PT ASSISTED WITH STANDING AT SIDE OF BED FOR URINAL USE. 150 CLEAR YELLOW URINE OUTPUT. PT NOW SITTING ON SIDE OF BED. DENIES COMPLAINTS.
--- NOTE | 2018-07-23 12:24 | NUR ---
VISITORS AT BEDSIDE.
--- NOTE | 2018-07-23 12:46 | NUR ---
DR. APONTE IN TO SEE PT. PLAN OF CARE UPDATED. BLADDER SCAN PERFORMED PER DR. APONTE. 61ML.
--- NOTE | 2018-07-23 16:25 | NUR ---
PT ASSISTED TO SITTING IN RECLINER CHAIR AT BEDSIDE. KALTOSTAT DRESSINGS SUPPLIED BY [employer] AND APPLIED TO BILATERAL LOWER LEGS, SECURED W/ KERLEX.
--- NOTE | 2018-07-23 20:30 | NUR ---
PT IN HIGHFOWLERS IN BED, A/O X3, RESPIRATIONS EVEN AND UNLABORED ON O2 @2L VIA NC. C/O GENERALIZED PAIN 05/17 WAS MEDICATED WITH PERCOCET AT 1837 BY DAY NURSE, PT IS AWARE THAT PERCOCET HAS BEEN ORDERED EVERY SIX HOURS PRN, VOICES UNDERSTANDING. BUMEX GTT INFUSING TO RAC AT 0.5ML/HR. AFIB ON HEART MONITOR, RATE 116. CALL LIGHT IN REACH, WILL CONTINUE TO MONITOR.
--- NOTE | 2018-07-23 21:45 | NUR ---
ASSISTED TO SIDE OF BED, VOIDING 200ML OF YELLOW URINE, CLEAN MESH PANTIES AND MAXI PAD PROVIDED DUE TO STRESS INCONTINENCE. BACK TO BED. CALL LIGHT IN REACH. DRESSINGS TO BILAT LOWER EXTREMITIE RE ENFORCED WITH CURLEX DUE TO WEEPING. CALL LIGHT IN REACH.
[2018-07-24] VITALS (16 sets, daily range): BP systolic 93–154; BP diastolic 61–92
--- NOTE | 2018-07-24 00:15 | NUR ---
IV TO RAC OCLUDED, DC'D WITH CATH TIP INTACT, NEW IV STARTED TO LAC #22, TOLERATED WELL, BUMEX INFUSING WITH NO COMPLICATIONS.
--- NOTE | 2018-07-24 03:29 | NUR ---
STANDING ON SIDE OF BED WITH ASSISTANCE, VOIDING 225ML OF CLEAR YELLOW URINE, THEN BACK TO BED. CALL LIGHT IN REACH.
--- NOTE | 2018-07-24 06:15 | NUR ---
STANDING ON SIDE OF BED WITH STANDBY ASSISTANCE, VOIDING 125ML OF CLEAR YELLOW URINE, BED ZERO'D FOR WEIGHT, BACK TO BED. WEIGHT 283. CALL LIGHT IN REACH.
--- NOTE | 2018-07-24 07:00 | NUR ---
REPORT FROM DIANA RICARDO AT START OF SHIFT
--- NOTE | 2018-07-24 07:22 | NUR ---
LAB @BEDSIDE FOR MORNING DRAW.
--- NOTE | 2018-07-24 07:38 | NUR ---
PT SITTING ON SIDE OF BED, EATING BREAKFAST.
[2018-07-24 07:44] LABS: HEMATOCRIT 27.7 % (39.0-50.0); HEMOGLOBIN 8.8 g/dl (14.0-18.0); IMMATURE GRANULOCYTES 0.3 % (0.0-5.0); MEAN CELL VOLUME 112.1 fL CALC (80.0-100.0); MEAN CORPUSCULAR HGB 35.6 pG CALC (26.0-32.0); MEAN CORPUSCULAR HGB CONC 31.8 g/L CALC (32.0-36.0); NEUT# 4.33 thou/uL (1.82-7.42); RED BLOOD COUNT 2.47 mill/uL (4.70-6.10); RED CELL DISTRI WIDTH 14.6 % (11.5-15.5)
[2018-07-24 07:47] LABS: ALBUMIN 2.9 g/dL (3.2-5.0); ALKALINE PHOSPHATASE 78 u/l (38-126); ANION GAP 11 (6-22 (CALC)); BILIRUBIN, TOTAL 0.3 mg/dL (0.0-1.4); BUN 14 mg/dL (8-23); BUN/CREATININE RATIO 22 (12-20 (CALC)); CARBON DIOXIDE 32 mmol/l (22-30); CHLORIDE 97 mmol/l (95-108); CREATININE 0.7 mg/dL (0.7-1.3); GFR > 60 ML/MIN (>=60 (CALC)); GFR FOR AFR.AMER. > 60 ML/MIN (>=60 (CALC)); MAGNESIUM 1.6 mg/dL (1.6-2.3); SGOT/AST 20 u/l (19-48); SODIUM 136 mmol/l (137-146); TOTAL PROTEIN 6.1 g/dL (6.3-8.2)
--- NOTE | 2018-07-24 07:53 | NUR ---
LAB NOTIFIED OF MICHAEL THROUGH . INSTRUCTED TO HOLD THIS DOSE AND THEY WILL CHANGE DOSE.
--- NOTE | 2018-07-24 08:03 | NUR ---
S: VALENTINE ROSE is a 68 M who presents with SOB. He has a history of HTN, 3 cardiac stents, CAD, ETOH, OA, Hyperlipidemia, COPD, CHF, A-fib . All medications in patient's chart were reviewed. O: VS: BP 143/77, P 120, RR 21,T 99.0 W 128.4, HT 72'', Scr= 0.7 ,CrCl= 98.5 A: Blood culture pending P: Patient is on Vancomycin Change Vancomycin dose to 1250mg IV Q 12 H. Dose on 07/24/18 at 0800 was held. Next dose on 07/24/18 at 2000 Vancomycin trough on 07/24/18 at 0725 was 21 Next trough will be 0730 on 07/26 Vancomycin goal trough is between 10-15 mcg/ml.
--- NOTE | 2018-07-24 08:34 | NUR ---
PT RETURNED TO BED. PT FREQUENTLY ON CALLBELL BC HE DROPPED HIS CHAPSTICK. PT STATES HE HAS TO STAND UP TO URINATE. LEGS WRAPPED THIS AM BY NIGHTSHIFT NURSE- UNABLE TO EXAM AT THIS TIME. PT C/O PAIN TO BILATERAL LOWER EXTREMETIES. ABD OBESE SOFT/NONTENDER, ACTIVE BS. BREATHING EVEN/UNLABORED LOWER LOBES DIMINISHED, MIDDLE/UPPER LOBES CLEAR. SKIN WARM/DRY. PT STATES HE IS FREEZING AND REQUEST BEARHUGGER ON MEDIUM SETTING TO WARM UP. PT EDUCATED TO NOT PLACE WARMER DIRECTLY ON SKIN OR IT WILL BURN HIM, PT NEEDS TO KEEP IT BETWEEN BLANKETS. FOOTBOARD REMOVED FROM BED FOR PTS COMFORT DUE TO HIS SIZE.
--- NOTE | 2018-07-24 09:01 | NUR ---
PT SLEEPING IN HIGH FOWLERS POSITION. NO S/S OF DISTRESS AT THIS TIME.
--- NOTE | 2018-07-24 09:47 | NUR ---
DIETARY @BEDSIDE FOR MEAL PREFERENCES FOR THE DAY.
--- NOTE | 2018-07-24 11:47 | NUR ---
PT SITTING UP ON SIDE OF BED, EATING LUNCH.
--- NOTE | 2018-07-24 11:59 | NUR ---
PT REQUEST SANDWICH BE HEATED UP.
--- NOTE | 2018-07-24 12:35 | NUR ---
@BEDSIDE. SHE BROUGHT CLOTHES FOR PT.
--- NOTE | 2018-07-24 12:46 | NUR ---
DR APONTE @BEDSIDE WITH PT.
--- NOTE | 2018-07-24 13:27 | NUR ---
RADIOLOGY CALLED TO SAY THEY ARE READY TO START PICC INSERTION
--- NOTE | 2018-07-24 14:18 | NUR ---
PT RETURNED FROM RADIOLOGY. PICC IN PLACE AND READY TO USE. PT TOLERATED PROCEDURE WELL.
--- NOTE | 2018-07-24 15:06 | NUR ---
EDGARRN REMOVING DRESSING FOR CHANGE DUE TO WEEPING THROUGH THE GAUZE. DIFFICULT TO REMOVE DRESSING. DR APONTE CALLED TO ROOM TO ASSESS BILATERAL LOWER EXTREMITIES.
--- NOTE | 2018-07-24 16:05 | NUR ---
PT RESTING IN BED. @BEDSIDE. NO S/S OF DISTRESS AT THIS TIME. WATCHING TV. CALLBELL W/IN REACH.
--- NOTE | 2018-07-24 19:05 | NUR ---
sitting on side of bed. no acute distress. o2 cont per nc. ship rigger shows a fib. picc line in place antonette. bumex gtt infusing @ 0.5cchr. fluid restriction cont. dsgs cont to bilat lower exts. stood to void. tnoy well. requires much assist with needs. fall precautions cont. c/o gen disc. rates as "8 & a half". pt does not appear in that much pain. percocet 10mg po given.
--- NOTE | 2018-07-24 21:00 | NUR ---
watching baseball. no further c/o pain voiced.
--- NOTE | 2018-07-24 22:00 | NUR ---
watching tv. no distress. conveyor monitor shows a fib.
[2018-07-25] VITALS (23 sets, daily range): BP systolic 133–172; BP diastolic 72–97
--- NOTE | 2018-07-25 00:05 | NUR ---
pt requested pain med. instructed pain med was given @ 1905, was ordered every 6 hrs prn & was due @ 0105. pt admitted he had asked for med since 6 pm & he "shouldn't be punished" because med was late. instructed pt again when pain med was due. pt admitted he was an "acception to the rule." instructed pt he wasn't an acception to the rule. pt admitted "you must think i'm a junkie." instructed pt this proposal manager writer didn't think he was a junkie. pt admitted "i'll have to keep calling you." instructed pt to call.
--- NOTE | 2018-07-25 00:50 | NUR ---
pt called this comic book writer to room. requested "pain medicine that was due 45 minutes ago." asked pt if he meant pain med due @ 0105. pt admitted "yes." c/o gen disc he rated as "8 & a half." percocet 10mg po given. instructed pt that i hope he sleeps well. pt stated "that was a threat". instructed pt he had an order for sleeping med if needed. this comic book writer then left room.
--- NOTE | 2018-07-25 04:00 | NUR ---
eyes closed. no distress. court recording monitor shows a fib.
--- NOTE | 2018-07-25 05:00 | NUR ---
blood drawn & sent to lab.
[2018-07-25 05:25] LABS: HEMATOCRIT 26.2 % (39.0-50.0); HEMOGLOBIN 8.4 g/dl (14.0-18.0); IMMATURE GRANULOCYTES 0.4 % (0.0-5.0); MEAN CELL VOLUME 112.4 fL CALC (80.0-100.0); MEAN CORPUSCULAR HGB 36.1 pG CALC (26.0-32.0); MEAN CORPUSCULAR HGB CONC 32.1 g/L CALC (32.0-36.0); NEUT# 3.28 thou/uL (1.82-7.42); RED BLOOD COUNT 2.33 mill/uL (4.70-6.10); RED CELL DISTRI WIDTH 14.4 % (11.5-15.5)
[2018-07-25 05:45] LABS: ALBUMIN 2.8 g/dL (3.2-5.0); ALKALINE PHOSPHATASE 75 u/l (38-126); ANION GAP 10 (6-22 (CALC)); BILIRUBIN, TOTAL 0.4 mg/dL (0.0-1.4); BUN 11 mg/dL (8-23); BUN/CREATININE RATIO 17 (12-20 (CALC)); CARBON DIOXIDE 33 mmol/l (22-30); CHLORIDE 99 mmol/l (95-108); CREATININE 0.6 mg/dL (0.7-1.3); GFR > 60 ML/MIN (>=60 (CALC)); GFR FOR AFR.AMER. > 60 ML/MIN (>=60 (CALC)); MAGNESIUM 1.7 mg/dL (1.6-2.3); POTASSIUM 4.1 mmol/l (3.5-5.1); SGOT/AST 22 u/l (19-48); SODIUM 138 mmol/l (137-146)
--- NOTE | 2018-07-25 07:00 | NUR ---
REPORT RECVD FROM DIANA DOMINGUEZ. PT SITTING ON SIDE OF BED, SCREAMING.
--- NOTE | 2018-07-25 07:09 | NUR ---
PT ON CALLBELL YELLING THAT HE WANTS HIS PAIN MEDICATION AND COMPLAINING ABOUT "OUR SERVICE OVER THE PAST 12 HOURS". TRIED TO APOLOGIZE AND REMIND PT THAT WE ARE DOING THE BEST WE CAN. PT CONTINUES TO YELL AT STAFF.
--- NOTE | 2018-07-25 07:26 | NUR ---
PT LITERALLY SCREAMING FROM HIS ROOM "DONT I GET TO EAT BREAKFAST?". EXPLAINED TO PT THAT NOONE HAS BREAKFAST YET BC IT IS NOT ON THE FLOOR YET. PT RESPONDED "THEN CALL SOMEONE IN THE KITCHEN AND GET MY FUING FOOD HERE NOW!" PT ASKED NOT TO YELL AT STAFF.
--- NOTE | 2018-07-25 08:17 | NUR ---
EDGAR & SARWAT ON UNIT. EXPLAINED NIGHT & AM WITH PT. THEY WILL SPEAK WITH PT.
--- NOTE | 2018-07-25 08:57 | NUR ---
SOM, DIETITIAN, @BEDSIDE EDUCATING PT ON HIS DIET RE: LOW SODIUM & FLUID RESTRICTIONS.
--- NOTE | 2018-07-25 09:35 | NUR ---
PT REFUSED HIS MORNING MEDICATIONS BC I WOULDNT GIVE HIM A BIG GLASS OF ICE WATER. PT STILL HAS CRANBERRY JUICE FROM BREAKFAST. REMINDED PT OF FLUID RESTRICTIONS. PER OTR FLATBED DRIVER, PT VERY ANGRY THAT HE COULD NOT HAVE MORE FLUIDS. EDUCATED PT ON TRYING TO STRETCH OUT FLUID INTAKE. REMINDED PT THAT DIETITION WAS JUST @BEDSIDE EDUCATING PT ON LOW SODIUM, FLUID RESTRICTED DIET. PT STATES "HE DOESNT CARE, HE WANTS HIS WATER WHEN HE WANTS HIS WATER." PT ALSO STATED WE "ARE NOT TREATING HIM HUMANLY".
--- NOTE | 2018-07-25 10:09 | NUR ---
PT ASSISTED UP TO STAND SO HE CAN URINATE. 225CC CLEAR YELLOW OUTPUT. PTS GOWN CHANGED AFTER SPILLAGE. ASSSITED PT BACK TO BED. ADJUSTED BLANKETS PER PTS DIRECTION. PT STILL USING BAIRHUGGER, REMINDED NOT TO PLACE IT DIRECTLY ON SKIN.
--- NOTE | 2018-07-25 10:45 | NUR ---
DR APONTE @BEDSIDE, ASSESSING PT & DISCUSSING POC & REVIEWING TEST RESULTS.
--- NOTE | 2018-07-25 11:00 | NUR ---
PT SLEEPING IN BED IN HIGH FOWLERS POSITION. NO S/S OF DISTRESS AT THIS TIME. WILL CONTINUE TO MONITOR.
--- NOTE | 2018-07-25 11:55 | NUR ---
PT UP TO SIDE OF BED, EATING LUNCH.
--- NOTE | 2018-07-25 12:37 | NUR ---
PT MEDICATED. PT VERBALLY NASTY TOWARD STAFF. PT REQUESTED CUP OF WATER. PT AWARE THIS MAKES 760CC OUT OF 1000CC HE CAN HAVE TODAY. PT UNDERSTANDS THAT HE CAN NOT HAVE ANY MORE TO DRINK AFTER HE DRINKS 1000CC/DAY.
--- NOTE | 2018-07-25 14:10 | NUR ---
PTS BILATERAL LOWER LEGS REBANDAGED USING XEROFORM PETROLATUM DRESSING & KERLIX GAUZE WRAP.
--- NOTE | 2018-07-25 15:42 | NUR ---
PT SITTING UP IN BED, WATCHING TV. @BEDSIDE. NO CONCERNS/NEEDS AT THIS TIME. CALLBELL W/IN REACH. WILL CONTINUE TO MONITOR.
--- NOTE | 2018-07-25 19:05 | NUR ---
c/o gen discomfort. percocet 10mg po given. pleasant & coop @ present. o2 cont per nc. 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 picc line in place antonette bumex gtt infusing @ 0.5mghr. fluid restriction cont. voids per urinal. dsgs cont to ble. fall precautions cont.
--- NOTE | 2018-07-25 22:00 | NUR ---
watching tv. no c/o voiced. manager cardiac cath shows a fib.
[2018-07-26] VITALS (17 sets, daily range): BP systolic 127–173; BP diastolic 68–101
--- NOTE | 2018-07-26 00:01 | NUR ---
eyes closed. no apparent distress. felt pad cutter shows a fib.
--- NOTE | 2018-07-26 01:15 | NUR ---
awake. c/o gen disc. percocet 10mg po given.
--- NOTE | 2018-07-26 02:00 | NUR ---
eyes closed. no apparent distress. rn cardiac shows a fib.
--- NOTE | 2018-07-26 04:00 | NUR ---
eyes closed. no apparent distress. court recording monitor shows a fib.
--- NOTE | 2018-07-26 05:00 | NUR ---
blood drawn & sent to lab.
--- NOTE | 2018-07-26 05:00 | NUR ---
stood to weigh. tony well.
[2018-07-26 06:13] LABS: HEMATOCRIT 27.4 % (39.0-50.0); HEMOGLOBIN 8.7 g/dl (14.0-18.0); IMMATURE GRANULOCYTES 0.3 % (0.0-5.0); MEAN CELL VOLUME 113.2 fL CALC (80.0-100.0); MEAN CORPUSCULAR HGB CONC 31.8 g/L CALC (32.0-36.0); NEUT# 5.24 thou/uL (1.82-7.42); RED BLOOD COUNT 2.42 mill/uL (4.70-6.10); RED CELL DISTRI WIDTH 14.5 % (11.5-15.5)
[2018-07-26 06:27] LABS: ALKALINE PHOSPHATASE 77 u/l (38-126); ANION GAP 12 (6-22 (CALC)); BILIRUBIN, TOTAL 0.4 mg/dL (0.0-1.4); BUN 11 mg/dL (8-23); BUN/CREATININE RATIO 15 (12-20 (CALC)); CARBON DIOXIDE 32 mmol/l (22-30); CHLORIDE 101 mmol/l (95-108); CREATININE 0.7 mg/dL (0.7-1.3); GFR > 60 ML/MIN (>=60 (CALC)); GFR FOR AFR.AMER. > 60 ML/MIN (>=60 (CALC)); MAGNESIUM 1.7 mg/dL (1.6-2.3); POTASSIUM 3.9 mmol/l (3.5-5.1); SGOT/AST 22 u/l (19-48); SODIUM 141 mmol/l (137-146); TOTAL PROTEIN 6.2 g/dL (6.3-8.2)
--- NOTE | 2018-07-26 07:30 | NUR ---
pt awake in bed; no distress noted; assessment completed at this time; pt alert and oriented; complaints of generalized pain; will medicate; no n/v noted; resp even and unlabored; lungs diminished throughout; skin color wnl; o2 per nc at 2L; hr reg; strong pulses; generalized edema noted; abd soft/ distended with bs present; no bm noted per typewriter ribbon winder; assist to standing on side of bed; pt able to urinate clear dark yellow urine; dual lumen picc line flushed and patent to antonette; vanco trough obtained per picc; bumex gtt infusing as per orders without complication; no redness or edema noted at site; dressing cdi to ble; plan of care/ am meds explained; pt encouraged to use call light; will continue to monitor
--- NOTE | 2018-07-26 08:08 | NUR ---
awake sitting on side of bed; no distress noted; offers complaints of pain; previously medicated; iv patent; no redness or edema noted at site; o2 per nc; call light within reach; will continue to monitor
--- NOTE | 2018-07-26 09:01 | NUR ---
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
--- NOTE | 2018-07-26 09:19 | NUR ---
awake; motion picture equipment supervisor light frequently for various needs; pt requires much encouragement to assist with needs/ ADLs; staff at bedside for am care and linen change; again, pt requires much encouragement to assist self with am care such as washing his own face; will continue to monitor
--- NOTE | 2018-07-26 10:00 | NUR ---
awake sitting on side of bed; automatic typewriter inspector at bedside for dressing change to ble; automatic typewriter inspector request for pt to lay back; assist to lying position; pt states "I can't lay down that long"; dressing change to ble using Xerform Petrolstum dressing, abd pads and kerlix; pt requesting automatic typewriter inspector to scrap excess skin off right leg/ declined; feet floated on pillow; olya hugger at bedside; pt instructed to keep direct heat away from skin to prevent bates; pt continues with complaints of "how cold it is in here and how dry the air is"; afib on the monitor; iv patent; will continue to monitor
--- NOTE | 2018-07-26 12:04 | NUR ---
awake sitting on side of bed; no distress noted; pt offers no complaints; iv patent; no redness or edema noted at site; bumex gtt continues at 0.5mg/hr; o2 per nc; call light within reach; will continue to monitor
--- NOTE | 2018-07-26 13:30 | NUR ---
Dr Rogers present at bedside to assess pt and discuss plan of care
--- NOTE | 2018-07-26 14:14 | NUR ---
awake sitting on side of bed; spouse present at bedside; plan of care explained; iv patent; no redness or edema noted at site; afib on monitor; pt offers no complaints at this time; call light within reach; will continue to monitor
--- NOTE | 2018-07-26 14:45 | NUR ---
Bumex gtt changed out at this time; gtt infusing at 5cc/hr=0.5mg/hr; tubing changed; no redness or edema noted at site; informed pt, staff will continue with strict I&Os; spouse at bedside; call light within reach; will continue to monitor
--- NOTE | 2018-07-26 15:51 | NUR ---
S: VALENTINE ROSE is a 68 M who presents with SOB. 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 All medications in patient's chart were reviewed. O: VS: BP 158/101, P 106, RR 38, T 98.5 W 129.6, HT 72'', Scr= 0.7 ,CrCl= 98.5 <ml/min> A: Blood culture pending. P: Patient is on Vancomycin Continue Vancomycin 1250 mg IV Q 12 H. Vancomycin trough is drawn before the the dose on 07/30/18 0730. Vancomycin goal trough is between <10-15 mcg/ml>. Pharmacy will follow and or advise on antibiotics use as needed.
--- NOTE | 2018-07-26 16:10 | NUR ---
awake sitting on side of bed; offers no complaints; spouse present at bedside; afib on monitor; iv patent; bumex gtt infusing at 0.5mg/hr; Dr Suarez present at bedside; dressing removed as per request; ble washed and extra moist skin removed per Dr Suarez; Adaptic dressing, abd pads and kerlix applied to each extremity; bilat legs wrap with janki bandage per Dr Suarez; pt denies needs; call light within reach; will continue to monitor
--- NOTE | 2018-07-26 17:31 | NUR ---
ANAMARIA Hart called per typewriter assembly and parts inspector; informed of increased u/o per Dr Rogers's request; CORRESPONDENCE RENEW CLERK informed of continuous tachycardia; CORRESPONDENCE RENEW CLERK also updated on new wound care orders per Dr Suarez
--- NOTE | 2018-07-26 17:34 | NUR ---
pt class a regional drivers light with complaints about not receiving a cup of ice with meal; pt hand meal ticket to staff requesting ice; fluids restriction explained and pt informed ice is included in fluid restriction/ ice is water when melted; pt continues to demand ice; half cup of iced provided
--- NOTE | 2018-07-26 18:04 | NUR ---
sitting on side of bed; offers no complaints at this time; iv patent; no redness or edema noted at site; bumex at 0.5mg/hr; o2 per nc; afib on monitor; bed in lowest position; side rails elevated; call light within reach
--- NOTE | 2018-07-26 19:30 | NUR ---
awake. denies c/o. o2 cont per nc. ekg monitor shows a fib. picc line in place antonette. bumex gtt infusing @ 5cchr. fluid restriction conts. voids per urinal. ble dsgs cont. fall precautions cont.
--- NOTE | 2018-07-26 22:00 | NUR ---
sitting in bedside chair watching tv. no c/o voiced. awake overnight monitor shows a fib.
[2018-07-27] VITALS (13 sets, daily range): BP systolic 122–155; BP diastolic 64–98
--- NOTE | 2018-07-27 00:01 | NUR ---
sleeping in chair. no distress. o2 conts. playground monitor shows a fib.
--- NOTE | 2018-07-27 02:00 | NUR ---
awake. uop has increased this shift. no distress. wafer fab technician shows a fib.
--- NOTE | 2018-07-27 04:00 | NUR ---
eyes closed. no distress. senior sales administrator shows a fib. remains in recliner.
--- NOTE | 2018-07-27 05:00 | NUR ---
blood drawn & sent to lab.
[2018-07-27 05:23] LABS: HEMATOCRIT 28.6 % (39.0-50.0); IMMATURE GRANULOCYTES 0.4 % (0.0-5.0); MEAN CELL VOLUME 112.2 fL CALC (80.0-100.0); MEAN CORPUSCULAR HGB 35.3 pG CALC (26.0-32.0); MEAN CORPUSCULAR HGB CONC 31.5 g/L CALC (32.0-36.0); NEUT# 5.42 thou/uL (1.82-7.42); RED BLOOD COUNT 2.55 mill/uL (4.70-6.10); RED CELL DISTRI WIDTH 14.2 % (11.5-15.5)
--- NOTE | 2018-07-27 05:25 | NUR ---
stood to weigh. tony well.
[2018-07-27 05:48] LABS: ALBUMIN 3.1 g/dL (3.2-5.0); ALKALINE PHOSPHATASE 77 u/l (38-126); ANION GAP 11 (6-22 (CALC)); BILIRUBIN, TOTAL 0.4 mg/dL (0.0-1.4); BUN 10 mg/dL (8-23); BUN/CREATININE RATIO 14 (12-20 (CALC)); CARBON DIOXIDE 35 mmol/l (22-30); CHLORIDE 100 mmol/l (95-108); CREATININE 0.8 mg/dL (0.7-1.3); GFR > 60 ML/MIN (>=60 (CALC)); GFR FOR AFR.AMER. > 60 ML/MIN (>=60 (CALC)); MAGNESIUM 1.4 mg/dL (1.6-2.3); POTASSIUM 3.6 mmol/l (3.5-5.1); SGOT/AST 25 u/l (19-48); SODIUM 142 mmol/l (137-146); TOTAL PROTEIN 6.6 g/dL (6.3-8.2)
--- NOTE | 2018-07-27 06:08 | NUR ---
eyes closed. no distress. o2 cont.
--- NOTE | 2018-07-27 07:30 | NUR ---
pt awake in recliner; no distress noted; pt offers no complaints; assessment completed at this time; pt alert and oriented; voiced no complaints of pain at this time; no n/v noted; resp even and unlabored; lungs clear/ diminished bases; skin color wnl; o2 per nc at 2L; hr irreg; strong pulses; generalized edema noted to ble; afib occ pvc on monitor; abd soft with bs present; no bm noted per fha underwriter; pt voiding clear yellow urine; urinal at bedside; dual lumen picc flushed and patent to antonette; lumens noted with good blood aspirate; dressing cdi to picc site; dressing cdi to bilat with moderate compression janki bandages applied per Dr Suarez 07/27/18; redness noted to groin fold; plan of care/ am meds explained; call light within reach; will continue to monitor
--- NOTE | 2018-07-27 08:07 | NUR ---
surgeon/president light frequently; awake in recliner; no distress noted; pt request information writer to cover his left shoulder with the blanket; information writer educated pt on need to attempt to do more for self when able; iv patent; am meds explained and administered; picc flushed per protocol; o2 per nc; afib on monitor; fluid restriction reinforced; pt noted with olya hugger; call light within reach; will continue to monitor
--- NOTE | 2018-07-27 10:23 | NUR ---
resting in recliner with eyes closed; no distress noted; afib on monitor; iv patent; no redness or edema noted at site; o2 per nc; offers no complaints; call light within reach; will continue to monitor
--- NOTE | 2018-07-27 11:58 | NUR ---
awake in recliner; no distress noted; pt with complaints of generalized pain; requesting pain meds; medicated per orders; iv flushed and patent; no redness or edema noted at site; afib on monitor; call light within reach; will continue to monitor
--- NOTE | 2018-07-27 13:07 | NUR ---
Dr Mercado present at bedside to assess that and discuss plan of care
--- NOTE | 2018-07-27 14:05 | NUR ---
awake in recliner; spouse present at bedside; no distress noted; pt offers no complaints; afib on monitor; o2 per nc; Bumex gtt started at 0.5mg/hr; received confirmation with ANAMARIA Hart to continue Bumex; call light within reach; will continue to monitor
[2018-07-27] MEDS ORDERED: AUGMENTIN875TAB PO (15:22)
[2018-07-27] MEDS ORDERED: DOXYCYCL HYC100 MG PO (15:22)
[2018-07-27] MEDS ORDERED: FLORASTOR250 M1 PO (15:22)
--- NOTE | 2018-07-27 15:52 | NUR ---
[facility] called per this typewriters functional tester; informed of discharge for this evening; discharge orders to be faxed.
--- NOTE | 2018-07-27 16:14 | NUR ---
Discharge instructions and wound care order faxed to [facility] as per request; confirmation received;
--- NOTE | 2018-07-27 16:35 | NUR ---
dressing to lle reinforced with moderate compression using janki wrap; abd pads and kerlix changed to rle d/t excessive serous drainage; moderate compression applied with janki wrap; picc removed from antonette with catheter tip intact; pt tolerated well; pressure dressing applied to picc site; will continue to monitor
--- NOTE | 2018-07-27 16:52 | NUR ---
Discharge instructions given. Patient verbalizes understanding of same. Discharged in stable condition via Wheelchair to Home with spouse. All belongings sent with pt.
== END 2018-07-27 16:55 | DRG 292 ==
LOC: ED 10:16 → ED-I 11:30 → ED 11:59 → MS2 12:00 → ICU 12:00
PROVIDERS: Family Medicine; ADMIT Internal Medicine Nephrology; ATTEND Internal Medicine Nephrology
PROC: 02HV33Z Insertion of Infusion Device into Superior Vena Cava, Percutaneous Approach (ICD-10-PCS; principal; 2018-07-24)
PROC: B518ZZA Fluoroscopy of Superior Vena Cava, Guidance (ICD-10-PCS; 2018-07-24)
DX: I11.0 Hypertensive heart disease with heart failure (principal); L03.115 Cellulitis of right lower limb; J44.1 Chronic obstructive pulmonary disease with (acute) exacerbation; L03.116 Cellulitis of left lower limb; L97.328 Non-pressure chronic ulcer of left ankle with other specified severity; L97.828 Non-pressure chronic ulcer of other part of left lower leg with other specified severity; L97.318 Non-pressure chronic ulcer of right ankle with other specified severity; L97.818 Non-pressure chronic ulcer of other part of right lower leg with other specified severity; I50.23 Acute on chronic systolic (congestive) heart failure; I25.10 Atherosclerotic heart disease of native coronary artery without angina pectoris; F32.9 Major depressive disorder, single episode, unspecified; E78.5 Hyperlipidemia, unspecified; I48.0 Paroxysmal atrial fibrillation; D64.9 Anemia, unspecified; E03.9 Hypothyroidism, unspecified; M15.9 Polyosteoarthritis, unspecified; Z95.5 Presence of coronary angioplasty implant and graft; Z96.0 Presence of urogenital implants; Z85.46 Personal history of malignant neoplasm of prostate; Z87.891 Personal history of nicotine dependence
CPT/HCPCS: J1650; J3370; J3475

== ENCOUNTER 2018-10-02 15:45 | Inpatient (IN) | payer MEDICARE, OTHER ==
[~2018-10-02] VITALS: Ht 193 cm; Wt 126.2 kg
[~2018-10-02 15:45] MED LIST changes: +CORRECTOL100 MG PO; +DOCUSATE SOD100 M2 PO; +MAGNESIUM OXID250 MG PO; +MORPHINE SUL30 M3 PO; +MUPIROCIN21 TOP; +OXYCOD/APAP1 TA4 PO; +TRIAMCINOLON0.11 EX
[2018-10-02 16:35] LABS: HEMATOCRIT 31.1 % (39.0-50.0); IMMATURE GRANULOCYTES 0.5 % (0.0-5.0); MEAN CELL VOLUME 107.6 fL CALC (80.0-100.0); MEAN CORPUSCULAR HGB 34.6 pG CALC (26.0-32.0); MEAN CORPUSCULAR HGB CONC 32.2 g/L CALC (32.0-36.0); NEUT# 6.11 thou/uL (1.82-7.42); RED BLOOD COUNT 2.89 mill/uL (4.70-6.10); RED CELL DISTRI WIDTH 14.7 % (11.5-15.5)
[2018-10-02 16:55] LABS: ALBUMIN 3.5 g/dL (3.2-5.0); ALKALINE PHOSPHATASE 82 u/l (38-126); BILIRUBIN, TOTAL 0.6 mg/dL (0.0-1.4); BUN 30 mg/dL (8-23); BUN/CREATININE RATIO 24 (12-20 (CALC)); CARBON DIOXIDE 31 mmol/l (22-30); CHLORIDE 88 mmol/l (95-108); CREATININE 1.2 mg/dL (0.7-1.3); GFR 60 ML/MIN (>=60 (CALC)); GFR FOR AFR.AMER. > 60 ML/MIN (>=60 (CALC)); LIPASE 33 u/l (23-300); SGOT/AST 32 u/l (19-48); TOTAL PROTEIN 7.1 g/dL (6.3-8.2)
[2018-10-02 16:57] LABS: ANION GAP 18 (6-22 (CALC)); ETHYL ALCOHOL 0 mg/dl (0-30); POTASSIUM 4.6 mmol/l (3.5-5.1); SODIUM 132 mmol/l (137-146)
[2018-10-02 17:05] LABS: MYOGLOBIN 162 ng/mL (0 - 121)
[2018-10-02] MEDS ORDERED: ULORIC40 MG PO (18:57)
[2018-10-02] MEDS ORDERED: METOPROL TAR100 MG PO (18:57)
[2018-10-02 19:31] VITALS: BP 113/69
[2018-10-03 01:07] VITALS: BP 130/78
[2018-10-03 04:15] VITALS: BP 135/82
[2018-10-03 05:42] LABS: HEMATOCRIT 27.9 % (39.0-50.0); HEMOGLOBIN 9.1 g/dl (14.0-18.0); IMMATURE GRANULOCYTES 0.3 % (0.0-5.0); MEAN CELL VOLUME 107.7 fL CALC (80.0-100.0); MEAN CORPUSCULAR HGB 35.1 pG CALC (26.0-32.0); MEAN CORPUSCULAR HGB CONC 32.6 g/L CALC (32.0-36.0); NEUT# 3.09 thou/uL (1.82-7.42); RED BLOOD COUNT 2.59 mill/uL (4.70-6.10); RED CELL DISTRI WIDTH 14.6 % (11.5-15.5)
[2018-10-03 06:48] LABS: ALBUMIN 3.2 g/dL (3.2-5.0); ALKALINE PHOSPHATASE 82 u/l (38-126); ANION GAP 15 (6-22 (CALC)); BILIRUBIN, TOTAL 0.4 mg/dL (0.0-1.4); BUN 30 mg/dL (8-23); BUN/CREATININE RATIO 35 (12-20 (CALC)); CARBON DIOXIDE 33 mmol/l (22-30); CHLORIDE 92 mmol/l (95-108); CREATININE 0.9 mg/dL (0.7-1.3); GFR > 60 ML/MIN (>=60 (CALC)); GFR FOR AFR.AMER. > 60 ML/MIN (>=60 (CALC)); POTASSIUM 4.6 mmol/l (3.5-5.1); SGOT/AST 26 u/l (19-48); SODIUM 135 mmol/l (137-146); TOTAL PROTEIN 6.5 g/dL (6.3-8.2)
[2018-10-03 06:49] LABS: MAGNESIUM 1.8 mg/dL (1.6-2.3)
[2018-10-03 08:18] VITALS: BP 120/69
[2018-10-03 11:05] VITALS: BP 147/93
[2018-10-03 16:05] VITALS: BP 155/89
[2018-10-03 19:31] VITALS: BP 148/79
[2018-10-04] VITALS (7 sets, daily range): BP systolic 138–180; BP diastolic 82–110
[2018-10-04 06:47] LABS: HEMATOCRIT 30.1 % (39.0-50.0); HEMOGLOBIN 9.8 g/dl (14.0-18.0); IMMATURE GRANULOCYTES 0.5 % (0.0-5.0); MEAN CELL VOLUME 107.5 fL CALC (80.0-100.0); MEAN CORPUSCULAR HGB CONC 32.6 g/L CALC (32.0-36.0); NEUT# 7.3 thou/uL (1.82-7.42); RED BLOOD COUNT 2.8 mill/uL (4.70-6.10)
[2018-10-04 07:00] LABS: ALBUMIN 3.5 g/dL (3.2-5.0); ALKALINE PHOSPHATASE 82 u/l (38-126); ANION GAP 16 (6-22 (CALC)); BILIRUBIN, TOTAL 0.4 mg/dL (0.0-1.4); BUN 32 mg/dL (8-23); BUN/CREATININE RATIO 30 (12-20 (CALC)); CARBON DIOXIDE 34 mmol/l (22-30); CHLORIDE 93 mmol/l (95-108); GFR > 60 ML/MIN (>=60 (CALC)); GFR FOR AFR.AMER. > 60 ML/MIN (>=60 (CALC)); POTASSIUM 4.7 mmol/l (3.5-5.1); SGOT/AST 31 u/l (19-48); SODIUM 138 mmol/l (137-146); TOTAL PROTEIN 7.1 g/dL (6.3-8.2)
[2018-10-04 07:55] LABS: URINE BILIRUBIN - DIPSTICK NEGATIVE (NEGATIVE); URINE BLOOD DIPSTICK TRACE-LYSED (NEGATIVE); URINE COLOR YELLOW; URINE GLUCOSE - DIPSTICK NEGATIVE (NEGATIVE); URINE KETONE NEGATIVE (NEGATIVE); URINE LEUK ESTERASE NEGATIVE (NEGATIVE); URINE NITRITE - DIPSTICK NEGATIVE (Negative); URINE PH 5.5 (4.5-8.0); URINE PROTEIN - DIPSTICK 30 mg/dL (NEG-TRACE); URINE UROBILINOGEN - DIPSTICK 0.2 E.U./dL (0.2)
[2018-10-04 08:11] LABS: URINE SQUAMOUS EPITHELIAL CELL FEW EPI/hpf (0-FEW)
[2018-10-04 08:12] LABS: URINE HYALINE CAST FEW lpf (NONE-RARE); URINE WBC 0-2 WBC/hpf (0-5)
[2018-10-05 00:39] VITALS: BP 158/92
[2018-10-05 04:10] VITALS: BP 141/99
[2018-10-05 05:47] LABS: HEMATOCRIT 31.7 % (39.0-50.0); HEMOGLOBIN 10.1 g/dl (14.0-18.0); IMMATURE GRANULOCYTES 0.5 % (0.0-5.0); MEAN CELL VOLUME 108.6 fL CALC (80.0-100.0); MEAN CORPUSCULAR HGB 34.6 pG CALC (26.0-32.0); MEAN CORPUSCULAR HGB CONC 31.9 g/L CALC (32.0-36.0); NEUT# 6.6 thou/uL (1.82-7.42); RED BLOOD COUNT 2.92 mill/uL (4.70-6.10); RED CELL DISTRI WIDTH 15.3 % (11.5-15.5)
[2018-10-05 06:11] LABS: ALBUMIN 3.4 g/dL (3.2-5.0); ALKALINE PHOSPHATASE 74 u/l (38-126); ANION GAP 14 (6-22 (CALC)); BILIRUBIN, TOTAL 0.2 mg/dL (0.0-1.4); BUN 30 mg/dL (8-23); BUN/CREATININE RATIO 36 (12-20 (CALC)); CARBON DIOXIDE 35 mmol/l (22-30); CHLORIDE 94 mmol/l (95-108); CREATININE 0.8 mg/dL (0.7-1.3); GFR > 60 ML/MIN (>=60 (CALC)); GFR FOR AFR.AMER. > 60 ML/MIN (>=60 (CALC)); MAGNESIUM 1.9 mg/dL (1.6-2.3); POTASSIUM 4.2 mmol/l (3.5-5.1); SGOT/AST 41 u/l (19-48); SODIUM 139 mmol/l (137-146); TOTAL PROTEIN 6.9 g/dL (6.3-8.2)
[2018-10-05 09:16] VITALS: BP 146/88
[2018-10-05 09:19] VITALS: BP 146/88
[2018-10-05] MEDS ORDERED: VIBRAMYCIN100 M2 PO (11:28)
[2018-10-05] MEDS ORDERED: MEDDOSEPAK PO (12:38)
== END 2018-10-05 13:45 | disposition home health service (06) | DRG 291 ==
LOC: ED 15:45 → ED-I 18:11 → ED 18:30 → MS2 18:31
PROVIDERS: Emergency Medicine; ADMIT Internal Medicine Nephrology; ATTEND Internal Medicine Nephrology
DX: I11.0 Hypertensive heart disease with heart failure (principal); J18.9 Pneumonia, unspecified organism; J44.1 Chronic obstructive pulmonary disease with (acute) exacerbation; L03.116 Cellulitis of left lower limb; L03.115 Cellulitis of right lower limb; J44.0 Chronic obstructive pulmonary disease with (acute) lower respiratory infection; I50.43 Acute on chronic combined systolic (congestive) and diastolic (congestive) heart failure; I25.10 Atherosclerotic heart disease of native coronary artery without angina pectoris; E78.5 Hyperlipidemia, unspecified; F32.9 Major depressive disorder, single episode, unspecified; I48.0 Paroxysmal atrial fibrillation; E03.9 Hypothyroidism, unspecified; E66.9 Obesity, unspecified; M15.9 Polyosteoarthritis, unspecified; E11.9 Type 2 diabetes mellitus without complications; K21.9 Gastro-esophageal reflux disease without esophagitis; D51.3 Other dietary vitamin B12 deficiency anemia; R41.82 Altered mental status, unspecified; T43.505A Adverse effect of unspecified antipsychotics and neuroleptics, initial encounter; Z79.01 Long term (current) use of anticoagulants; Z68.29 Body mass index [BMI] 29.0-29.9, adult; Z95.5 Presence of coronary angioplasty implant and graft; Z85.46 Personal history of malignant neoplasm of prostate; Z87.891 Personal history of nicotine dependence; R06.89 Other abnormalities of breathing

== ENCOUNTER 2018-11-22 11:38 | Outpatient (RCR) | payer MEDICARE, OTHER ==
[2018-11-20 15:28] VITALS: BP 133/80
[2018-11-21 09:25] LABS: BUN 20 mg/dL (8-23); BUN/CREATININE RATIO 26 (12-20 (CALC)); CARBON DIOXIDE 31 mmol/l (22-30); CHLORIDE 91 mmol/l (95-108); CREATININE 0.8 mg/dL (0.7-1.3); GFR > 60 ML/MIN (>=60 (CALC)); GFR FOR AFR.AMER. > 60 ML/MIN (>=60 (CALC)); SODIUM 132 mmol/l (137-146)
[2018-11-21 09:58] LABS: ANION GAP 15 (6-22 (CALC)); POTASSIUM 4.9 mmol/l (3.5-5.1)
[2018-11-21 13:51] VITALS: BP 114/80
[~2018-11-22] VITALS: Ht 193 cm; Wt 128.8 kg
[~2018-11-22 11:38] MED LIST changes: +MEDDOSEPAK PO; +ULORIC40 MG PO; +VIBRAMYCIN100 M2 PO
[2018-11-22 12:28] LABS: BUN 18 mg/dL (8-23); BUN/CREATININE RATIO 24 (12-20 (CALC)); CARBON DIOXIDE 28 mmol/l (22-30); CHLORIDE 90 mmol/l (95-108); CREATININE 0.8 mg/dL (0.7-1.3); GFR > 60 ML/MIN (>=60 (CALC)); GFR FOR AFR.AMER. > 60 ML/MIN (>=60 (CALC)); SODIUM 131 mmol/l (137-146)
[2018-11-22 12:33] LABS: ANION GAP 17 (6-22 (CALC)); POTASSIUM 3.8 mmol/l (3.5-5.1)
== END 2018-11-22 13:30 | disposition home or self-care (01) ==
LOC: INF 11:38
PROVIDERS: ATTEND Internal Medicine
DX: I50.42 Chronic combined systolic (congestive) and diastolic (congestive) heart failure (principal); R60.9 Edema, unspecified

== ENCOUNTER 2019-02-24 16:37 | Inpatient (IN) | payer MEDICARE, OTHER ==
[2019-02-24] VITALS (9 sets, daily range): BP systolic 102–139; BP diastolic 66–84
[~2019-02-24] VITALS: Ht 182.9 cm; Wt 114.4 kg
[~2019-02-24 16:37] MED LIST changes: -CYMBALTA30 MG PO; +CYMBALTA60 MG PO
--- NOTE | 2019-02-24 16:45 | NUR ---
PT CAME IN VIA EMS TO ROOM 9, COMPLAINT OF WEAKNESS, PT HAS SIGNIFFICANT MEDICAL HISTORY WITH CURRENT WEEPING LEG WOUNDS AND YEAST LOOKING RASH TO GROIN, PT IS CURRENTLY A [facility] HH PATIENT, AT BEDSIDE PLAN OF CARE DISCUSSED INCLUDING TLC PLACEMENT AND VASOPRESSOR FOR HYPOTENSION. PT VERBALIZES UNDERSTANDING AND GIVES VERBAL CONSENT.
--- NOTE | 2019-02-24 17:15 | NUR ---
LEVOPHED STARTED AT 5 MCG WILL MONITOR B/P
[2019-02-24 17:29] LABS: IMMATURE GRANULOCYTES 1.1 % (0.0-5.0); MEAN CORPUSCULAR HGB CONC 32.3 g/L CALC (32.0-36.0); NEUT# 14.48 thou/uL (1.82-7.42); RED BLOOD COUNT 2.53 mill/uL (4.70-6.10)
[2019-02-24 17:36] LABS: ALKALINE PHOSPHATASE 140 u/l (38-126); ANION GAP 13 (6-22 (CALC)); BILIRUBIN, TOTAL 0.4 mg/dL (0.0-1.4); BUN 30 mg/dL (8-23); BUN/CREATININE RATIO 29 (12-20 (CALC)); CARBON DIOXIDE 23 mmol/l (22-30); CHLORIDE 95 mmol/l (95-108); GFR > 60 ML/MIN (>=60 (CALC)); GFR FOR AFR.AMER. > 60 ML/MIN (>=60 (CALC)); POTASSIUM 4.7 mmol/l (3.5-5.1); SGOT/AST 16 u/l (19-48); SODIUM 126 mmol/l (137-146); TOTAL PROTEIN 6.2 g/dL (6.3-8.2)
[2019-02-24 17:37] LABS: ALBUMIN 2.3 g/dL (3.2-5.0)
--- NOTE | 2019-02-24 17:40 | NUR ---
TITRATED LEVO TO 3MCG
[2019-02-24 17:46] LABS: HEMATOCRIT 25.1 % (39.0-50.0); HEMOGLOBIN 8.1 g/dl (14.0-18.0); MEAN CELL VOLUME 99.2 fL CALC (80.0-100.0)
--- NOTE | 2019-02-24 17:58 | NUR ---
AT BEDSIDE IV ABT INFUSING ORDERED WELL IVF AND LEVOPHED, TITRATED FOR BP
--- NOTE | 2019-02-24 18:00 | NUR ---
LEVOPHED BACK UP TO 5 MCG
[2019-02-24] MEDS ORDERED: TRAZODONE50 MG PO (18:08)
[2019-02-24] MEDS ORDERED: SPIRONOLACT25 MG PO (18:09)
[2019-02-24] MEDS ORDERED: CEPHALEXIN500 MG PO (18:11)
[2019-02-24] MEDS ORDERED: MAGNESIUM250 M1 PO (18:19)
[2019-02-24] MEDS ORDERED: VITAMIN C500 MG PO (18:22)
[2019-02-24] MEDS ORDERED: LEVOTHYROXIN150 MCG PO (18:23)
[2019-02-24] MEDS ORDERED: TYLENOL 8 HOUR650 MG PO (18:30)
--- NOTE | 2019-02-24 19:09 | NUR ---
REPORT CALLED TO RADHA SCHWARTZ IN ICU
--- NOTE | 2019-02-24 19:26 | NUR ---
PT ARRIVED TO UNIT VIA STRETHCER WITH ER STAFF; LITA AND ORIENTED. ASSISTED SELF FROM STRETCHER TO BED WITH 2 PERSON ASSIST. LEVOPHED DRIP INFUSING UPON ARRIVAL AT 5 MCG/MIN AND VANCO ALSO INFUSING INTO RIGHT IJ WITHOUT DIFFICULTY. PT DENIES PAIN. RESPIRATIONS EVEN AND LABORED WITH EXERTION ON OXYGEN 2L VIA NC. ORIENTED TO ROOM AND CALL LIGHT SYSTEM. PT DELIA NO BELONGINGS OR MEDICATIONS. PLAN OF CARE DISCUSSED. PT ENCOURAGED TO VERBALIZE CONCERNS. STATES UNDERSTANDING. SAFETY MEASURES IN PLACE. CALL LIGHT WITHIN REACH.
--- NOTE | 2019-02-24 20:22 | NUR ---
AT BEDSIDE. ASSESSMENT COMPLETE. PT ASSISTED TO SITTING POSITION ON SIDE OF BED TO USE HIS ARTIFICAL URINARY SPHINCTER; PT MANUVERS EQUIPMENT IN SCROTUM TO ALLOW URINARY FLOW; 425 CLEAR YELLOW URINE AND PT STATES HE DOES HAVE SOME INCONTINENCE. LEGS ARE VERY RED AND SCALEY WITH 2 ULCERS TO LEFT SHEFFIELD; REDNESS ALSO NOTED TO GROIN EXTENDING DOWN TO INTERIOR THIGHS. PHOTOS TAKEN AND PLACED IN CHART. BLOOD PRESSURE STABLE; TEMPERATURE 96.7 WITH COOL MOIST SKIN AND PT C/O BEING COLD; WARM BLANKET PROVIDED.
--- NOTE | 2019-02-24 20:27 | NUR ---
LEFT BEDSIDE. SANDWHICH GIVEN PER REQUEST. NO OTHER REQUESTS OR CONCERNS AT THIS TIME. RIGHT IJ DRESSING BLOODY; WILL REPLACE.
--- NOTE | 2019-02-24 22:40 | NUR ---
CENTRAL LINE DRESSING CHANGED.
--- NOTE | 2019-02-24 23:09 | NUR ---
PT REQUESTED TO HAVE BOTH SCHEDULED MORPHINE PO AND PEROCET TOGETHER; STATES THAT IS THE WAY HE TAKES THEM AT HOME. BOTH MEDICATIONS GIVEN AT THIS TIME.
[2019-02-25] VITALS (23 sets, daily range): BP systolic 84–135; BP diastolic 47–87
--- NOTE | 2019-02-25 00:01 | NUR ---
UP TO BSC TO ATTEMPT TO HAVE BOWEL MOVEMENT; PT STATES IT USUALLY TAKES HIM A LONG TIME FOR RESULTS. SAT UP FOR 20 MINUTES THEN RESPOSITIONED TO SIDE OF BED FOR COMFORT FOR 3 MINUTES THEN CALLED TO HAVE NURSE ASSIST HIM BACK ONTO BSC. EXCORIATION AND OPEN AREA NOTED TO INNER BUTTOCK; PT STATES HE GOT THAT FROM SITTING TOO MUCH. PHOTO OBTAINED.
[2019-02-25 00:14] LABS: URINE BILIRUBIN - DIPSTICK NEGATIVE (NEGATIVE); URINE BLOOD DIPSTICK NEGATIVE (NEGATIVE); URINE COLOR YELLOW; URINE GLUCOSE - DIPSTICK NEGATIVE (NEGATIVE); URINE KETONE NEGATIVE (NEGATIVE); URINE LEUK ESTERASE NEGATIVE (NEGATIVE); URINE NITRITE - DIPSTICK NEGATIVE (Negative); URINE PROTEIN - DIPSTICK NEGATIVE (NEG-TRACE); URINE UROBILINOGEN - DIPSTICK 0.2 E.U./dL (0.2)
--- NOTE | 2019-02-25 02:00 | NUR ---
PT USING CALL LIGHT FOR FREQUENT NEEDS/WANTS.
--- NOTE | 2019-02-25 04:49 | NUR ---
LABS DRAWN FROM RIGHT IJ; WHITE LUMEN DOES NOT FLUSH OR HAVE BLOOD RETURN; BLUE AND RED LUMENS FLUSH WELL WITH GOOD BLOOD RETURN. PT'S BLOOD PRESSURE REMAINS STABLE WITH MAP GREATER THAN 65; LEVOPHED CONTINUES TO INFUSE AT 5 MCG/MIN WITHOUT DIFFICUTLY.
[2019-02-25 05:19] LABS: HEMATOCRIT 25.5 % (39.0-50.0); HEMOGLOBIN 8.2 g/dl (14.0-18.0); MEAN CELL VOLUME 98.8 fL CALC (80.0-100.0); MEAN CORPUSCULAR HGB 31.8 pG CALC (26.0-32.0); MEAN CORPUSCULAR HGB CONC 32.2 g/L CALC (32.0-36.0); NEUT# 15.23 thou/uL (1.82-7.42); RED BLOOD COUNT 2.58 mill/uL (4.70-6.10); RED CELL DISTRI WIDTH 17.2 % (11.5-15.5)
[2019-02-25 05:41] LABS: ALBUMIN 2.4 g/dL (3.2-5.0); ALKALINE PHOSPHATASE 142 u/l (38-126); ANION GAP 11 (6-22 (CALC)); BILIRUBIN, TOTAL 0.5 mg/dL (0.0-1.4); BUN 25 mg/dL (8-23); BUN/CREATININE RATIO 31 (12-20 (CALC)); CHLORIDE 97 mmol/l (95-108); CREATININE 0.8 mg/dL (0.7-1.3); GFR > 60 ML/MIN (>=60 (CALC)); GFR FOR AFR.AMER. > 60 ML/MIN (>=60 (CALC)); MAGNESIUM 1.6 mg/dL (1.6-2.3); POTASSIUM 4.8 mmol/l (3.5-5.1); SGOT/AST 15 u/l (19-48); SODIUM 131 mmol/l (137-146); TOTAL PROTEIN 6.3 g/dL (6.3-8.2)
[2019-02-25 05:43] LABS: CARBON DIOXIDE 28 mmol/l (22-30)
--- NOTE | 2019-02-25 06:17 | NUR ---
PT C/O MORE OF FEET HURTING; SCALING SKIN BEGINNING TO CRACK WITH SOME BLEEDING; ELEVATED ON A PILLOW. PERCOCET GIVEN FOR C/O 9/10 LEG, HAND, NECK PAIN. PT CONTINUES WITH FREQUENT NEEDS/WANTS.
--- NOTE | 2019-02-25 07:10 | NUR ---
Received pt in mid-fowlers postiion. Eyes closed. Resp easy. Levophed gtt infusing at 5mcg/min or 19ml/hr. b/p 106/68. No signs of distress. Call light within reach.
--- NOTE | 2019-02-25 07:30 | NUR ---
Dr Rogers called this literary writer; requesting for levophed to be weaned; literary writer informed current bp 87/58, hr 113; 's request to wean levo reported to nurse caring for, sebas Pete, RN
--- NOTE | 2019-02-25 07:45 | NUR ---
Pt now awake and assisted up to recliner chair at bedside and set up with breakfast tray. Pt x2 max assist. PT oriented to person otherwise pleasantly confused.
--- NOTE | 2019-02-25 08:00 | NUR ---
Assessment complete, see shift review.
--- NOTE | 2019-02-25 08:30 | NUR ---
Pts b/p 103/72. Levophed gtt decreased to 4mcg/min per MD orders to wean. Pt continues to eat breakfast. Scheduled AM pain medication provided as requested. Feet elevated due to complaints of pain. Will continue to monitor.
--- NOTE | 2019-02-25 09:24 | NUR ---
B/P 109/66 Levophed gtt decreased to 3mcg/min.
--- NOTE | 2019-02-25 10:24 | NUR ---
B/P 119/[address] Rogers in to see patient.
--- NOTE | 2019-02-25 11:30 | NUR ---
wound culture obtained as ordered.
--- NOTE | 2019-02-25 11:32 | NUR ---
pt education in Bumeg gtt; Bumex gtt initiated at 0.5mg/hr=5cc/hr to RIF TLC; dose to be maintained and adjusted per this keno writer/runner
--- NOTE | 2019-02-25 12:07 | NUR ---
pt sitting in recliner eating lunch. medicated w/ percocet 10/325 PO for generalized pain. repositioned for comfort. call light in reach. will continue to monitor.
--- NOTE | 2019-02-25 14:24 | NUR ---
pt watching telvision. family at bedside. call light in reach. will continue to monitor.
--- NOTE | 2019-02-25 16:45 | NUR ---
Pt would like to know when he can recieve more pain medication. Medication administration discussed w/ pt and family. Both state understanding. Pt denies any further needs. Call light in reach. Will continue to monitor.
--- NOTE | 2019-02-25 18:18 | NUR ---
Pt c/o feet pain. medicated w/ one percocet PO. Repositioned in recliner for comfort. Call light in reach. Will continue to monitor.
--- NOTE | 2019-02-25 19:00 | NUR ---
PATIENT SITTING UP IN BEDSIDE CHAIR. ON 2 LITERS NASAL CANNULA, SATS 98%-99%, I HAVE WEANED HIM TO 1 L/MIN ON THE NASAL CANNULA, PATIENT REPORTS HE WEARS OXYGEN AT HOME NEEDED, NO SHORTNESS OF BREATH OBSERVED, LUNG SOUNDS ARE CLEAR UPPER LUNGS AND DIMINISHED LOWER LUNGS. ABDOMEN IS SOFT AND ACTIVE BOWEL SOUNDS, PATIENT IS PASSING FLATUS. ALERT AND ORIENTED X 3, HARD OF HEARING. RADIAL AND PEDAL PULSES STRONG. LOWER EXTREMETIES HAVE 2+ EDEMA AND WEEPING, PATIENT HAS OPEN AREAS THROUGH OUT BILATERAL LEGS AND FEET, WARM, RED, AND MOIST. PATIENT REPORTS RATES HIS PAIN 7 OF 10, HE REPORTS HIS PAIN IS ALWAYS AT A 7 OR 8 LATELY ON HIS FEET. TRIPLE LUMEN RIJ IS INTACT AND ALL 3 LINES ARE FLUSHING AND RETURNING BLOOD PROPERLY, BUMEX DRIP IS INFUSING AT 5 ML/HR OR 0.5MG/HR. AFEBRILE. SINUS TACHYCARDIA AT 121 BPM. PATIENT HAS RED GROIN AREA AND RED INNER THIGHS. PATIENT ADMITS TO SCRATCHING HIS THIGHS AND ARMS AND WHICH I OBSERVED THERE ARE SCATTERED SCABBED AREAS. PATIENT EDUCATED ON 1 LITER FLUID RESTRICTION, BUMEX DRIP, CALL LIGHT SYSTEM, MEDICATIONS FOR TONIGHT WELL PAIN MEDICATIONS AVAILABLE. WILL CONTINUE TO MONITOR, CALL LIGHT WITHIN REACH.
--- NOTE | 2019-02-25 20:00 | NUR ---
PATIENT REQUESTING FOR HIS LEGS AND FEET TO BE CUSHIONED TO HELP WITH HIS PAIN AND DISCOMFORT, I HAVE WASHED OPEN AREAS TO LOWER EXTREMITIES WITH SALINE AND COVERED WITH NONADHERENT GAUZE WELL GAUZE WRAP, I HAVE ALSO SUPPLIED PADDED BOOTS FOR HIS HEELS.
--- NOTE | 2019-02-25 20:40 | NUR ---
PATIENT SAFELY TRANSFERRED TO BED WITH ASSIST X2 AND WALKER WHICH HE REFUSED TO USE AT FIRST. BLE ELEVATED WITH PILLOWS AND ALSO APPLIED THE PADDED BOOTS TO HIS HEELS. HOB 45 DEGREES. CALL LIGHT WITHIN REACH.
--- NOTE | 2019-02-25 22:00 | NUR ---
PATIENT ETHOLOGIST LIGHT FOR ASSISTANCE TO USE URINAL, HELPED SET HIM UP SO THAT HE COULD USE THE URINAL, HE WET HIS GOWN AND GREEN PAD, I CHANGED BOTH AND CLEANED MAXI AREA, PATIENT ENCOURAGED TO HELP, HE REFUSES AT TIME AND REPORTS "I CAN'T," PATIENT IRRITATED. HE REPORTS BEING UNCOMFORTABLE SO I ASKED NURSE ANGELICA TO HELP PULL HIM UP WELL ENCOURAGED HIM TO HELP BY GRASPING HIS HANDS ON THE BED RAILS AND BENDING HIS KNEES. BILATERAL FEET ELEVATED WITH PILLOWS AND I APPLIED AN EXTRA PILLOW PER HIS REQUEST. URINE IS YELLOW, CLEAR. CALL LIGHT WITHIN REACH.
[2019-02-26] VITALS (23 sets, daily range): BP systolic 90–151; BP diastolic 57–82
--- NOTE | 2019-02-26 00:27 | NUR ---
PATIENT SENIOR SHAREPOINT DEVELOPER LIGHT FOR ASSISTANCE TO USE URINAL ,HELPED HIMS IT UP ON EDGE OF BED. BECOMES SHORT OF BREATH WITH EXERTION. LEGS ELEVATED WITH PILLOWS, CONTINUES TO WEEP AND BLOOD PRESENT ON FLOOR FROM FEET. ON NASAL CANNULA AT 1L/MIN. ASKED FOR MORE ICED WATER, I RE-EDUCATED HIM ON HIS FLUID RESTRICTION. PAIN MEDICATION GIVEN. ATRIAL FIB ON THE MONITOR, HR 121 BPM. CALL LIGHT WITHIN REACH.
--- NOTE | 2019-02-26 02:14 | NUR ---
HOB 45 DEGREES, ON 1 LITERS NASAL CANNULA, SLEEPING. CALL LIGHT WIHIN REACH.
--- NOTE | 2019-02-26 04:00 | NUR ---
PATIENT HELPED TO SIT UP AND USE URINAL. ON 1 LITER NASAL CANNULA, BECOMES SHORT OF BREATH WITH EXERTION. ABLE TO USE WALKER TO MOVE UP TO HOB. ASKED FOR MORE WATER AND REMINDED HIM HOW MUCH HE HAS DRANK AND HOW MUCH HE HAS LEFT FOR THE DAY TO DRINK, EDUCATED HIM ON HIS FLUID RESTRICTION AND HOW IT IS IMPORTANT TO FOLLOW IT SINCE HE HAD MENTIONED IT WAS "OKAY TO CHEAT A LITTLE BIT." BLE ELEVATED. AFIB ON TELE, HR 125 BPM. PATIENT ENCOURAGED TO DO SIMPLE TASKS ON HIS OWN SINCE HE ASKS FOR SIMPLE THINGS TO BE DONE FOR HIM. CALL LIGHT WITHIN REACH.
--- NOTE | 2019-02-26 04:45 | NUR ---
RIJ TRIPLE LUMEN WORKING PROPERLY FOR BLOOD DRAW THIS MORNING, BUMEX DRIP IS INFUSING AT 5ML/HR OR 0.5MG/HR, NEW BAG HUNG, VANCOMYCIN NOW INFUSING.
[2019-02-26 04:56] LABS: HEMATOCRIT 26.5 % (39.0-50.0); HEMOGLOBIN 8.5 g/dl (14.0-18.0); IMMATURE GRANULOCYTES 0.7 % (0.0-5.0); MEAN CELL VOLUME 98.9 fL CALC (80.0-100.0); MEAN CORPUSCULAR HGB 31.7 pG CALC (26.0-32.0); MEAN CORPUSCULAR HGB CONC 32.1 g/L CALC (32.0-36.0); NEUT# 7.16 thou/uL (1.82-7.42); RED BLOOD COUNT 2.68 mill/uL (4.70-6.10); RED CELL DISTRI WIDTH 17.4 % (11.5-15.5)
[2019-02-26 05:16] LABS: ALBUMIN 2.6 g/dL (3.2-5.0); ALKALINE PHOSPHATASE 148 u/l (38-126); AMYLASE 45 u/l (30-110); ANION GAP 9 (6-22 (CALC)); BILIRUBIN, TOTAL 0.4 mg/dL (0.0-1.4); BUN 21 mg/dL (8-23); BUN/CREATININE RATIO 26 (12-20 (CALC)); CARBON DIOXIDE 31 mmol/l (22-30); CHLORIDE 97 mmol/l (95-108); CREATININE 0.8 mg/dL (0.7-1.3); GFR > 60 ML/MIN (>=60 (CALC)); GFR FOR AFR.AMER. > 60 ML/MIN (>=60 (CALC)); LIPASE 52 u/l (23-300); MAGNESIUM 1.3 mg/dL (1.6-2.3); POTASSIUM 4.3 mmol/l (3.5-5.1); SGOT/AST 16 u/l (19-48); SODIUM 133 mmol/l (137-146); TOTAL PROTEIN 6.6 g/dL (6.3-8.2)
--- NOTE | 2019-02-26 06:13 | NUR ---
PATIENT WITH EYES CLOSED, EASILY AROUSED. ABLE TO TAKE PAIN MEDICATION, RATES PAIN IN HIS FEET 9/10. BLE ELEVATED. ON 1 LITER NASAL CANNULA, SATS 92%. CALL LIGHT WITHIN REACH. WILL CONTINUE TO MONITOR.
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
--- NOTE | 2019-02-26 07:33 | NUR ---
PT SITTING UP IN BED, EATING BREAKFAST. REMINDED OF FLUID RESTRICTIONS.
--- NOTE | 2019-02-26 07:39 | NUR ---
PT ON PHONE, ASKED TO BRING HIS CREAM FOR HIS LEGS. FINISHED BREAKFAST.
--- NOTE | 2019-02-26 07:55 | NUR ---
DR APONTE CALLED FOR STATUS UPDATE. ORDER PLACED FOR MAG IV.
--- NOTE | 2019-02-26 08:42 | NUR ---
PT EDUCATED & MEDICATED. SITTING ON SIDE OF BED, USING URINAL. PT GOT SELF IN NEW POSITION.
--- NOTE | 2019-02-26 09:57 | NUR ---
DR APONTE @BEDSIDE WI PT. WILL CONSULT WOUND CARE FOR BLE/FEET. CONTINUE WITH BUMEX DRIP.
--- NOTE | 2019-02-26 10:11 | NUR ---
WOUND CARE NOTIFIED OF CONSULT.
--- NOTE | 2019-02-26 10:37 | NUR ---
PT SITTING ON SIDE OF BED, URINATING IN URINAL.
--- NOTE | 2019-02-26 10:50 | NUR ---
WOUND CARE @BEDSIDE. CLEANSING BLE. SEARCHING FOR AQUAFOR.
--- NOTE | 2019-02-26 11:25 | NUR ---
WOUND CARE APPLIED UNABOOT TO BILATERAL LOWER EXTREMETIES/FEET. DR FRANCOIS STATES DRESSING CAN STAY ON FOR UP TO 7 DAYS. CALL HER IF WE NOTICE WOUNDS SEPPING THROUGH DRESSING. SHE WILL PROB COME BACK ON SUNDAY. PT WANTS TO GO HOME. STATES HE WILL F/UP ON HIS OWN. BOOTS PLACED ON HEELS AND BLE ELEVATED. PT GIVEN ICE CUBES. REMINDED OF FLUID RESTRICTIONS.
--- NOTE | 2019-02-26 11:32 | NUR ---
@BEDSIDE. PT SITTING UP IN BED, EATING LUNCH. ADMIN IN ROOM.
--- NOTE | 2019-02-26 11:39 | NUR ---
PT ASKING FOR PEARS OR PEACHES FROM [place]. PT REMINDED OF FLUID RESTRICTIONS AND PT/ EDUCATED ON SAME. PT STATES "WHATEVER, I DO WHATEVER I WANT AT HOME".
--- NOTE | 2019-02-26 12:03 | NUR ---
VANCO IV ABX HELD UNTIL LAB RESULTS VERIFIED.
--- NOTE | 2019-02-26 12:19 | NUR ---
PT A&O BUT CONFUSED. CALLING STAFF MEMBERS BY DIFFERENT NAMES. THIS RN IS ESTHER; MCKAYLA STUDENT IS TRACIE MCMAHON; RICKEY WOUND CARE IS DAVIN; DR CÁRDENAS IS MEGA. PTS EKG LEADS & PULSE OX ADJUSTED FOR ARTIFACT.
--- NOTE | 2019-02-26 12:26 | NUR ---
PER PHARMACY, HOLD THIS DOSE OF VACOMYCIN.
--- NOTE | 2019-02-26 13:11 | NUR ---
PT MAX ASSIST x2 UP TO RECLINER, USING WALKER. LEGS ELEVATED. BEDSIDE TABLE OVER PTS LAP. CALLBELL IN HAND. WASHED PTS HAIR WITH WASHCLOTH. PT GIVEN COMB & DEODORANT. PT SET UP TO BRUSH OWN TEETH. LINENS CHANGED. PT IN NONSKID SOCKS.
--- NOTE | 2019-02-26 13:12 | NUR ---
S: VALENTINE ROSE is a 68 M who presents with GENERALIZED WEAKNESS, LEG CELLULTIS, AND HYPOTENSION (SEPSIS SUSPECTED). He has a history of CORONARY ARTERY DISEASE, A FIB, TYPE 2 DIABETES, HYPOTHYROIDISM, AND ANEMIA. All medications in patient's chart were reviewed. O: VS: BP 137/78 MMHG, P 122 BPM, RR 20, T 98.2 F W 115 KG, HT 76 IN, Scr= 1, CrCl 116 ML/MIN A: Blood culture IS PENDING. P: Vancomycin ordered for pharmacy to dose. Previous vanco dose of 1 gm IV q8h yielded trough of 21. Change to vanco 1250mg IV q12h at 0800 and 2000. Vancomycin trough is drawn before the 4th dose on 02/28/19 @ 0730. Vancomycin goal trough is between 15-20. Pharmacy will follow and or advise on antibiotics use as needed.
--- NOTE | 2019-02-26 13:58 | NUR ---
HOUSEKEEPING IN ROOM AGAIN FOR CLEANING. STILL @BEDSIDE. PT CONVERSING W/OUT DYSPNEA. PT FREQUENTLY REMINDED TO KEEP NC IN NOSTRILS. WILL CONTINUE TO MONITO.
--- NOTE | 2019-02-26 14:20 | NUR ---
PT USING ELECTRIC TOOTHBRUSH TO BRUSH TEETH AGAIN. STATES HIS MOUTH HURTS. REQUEST MORE WATER TO BRUSH TEETH. UA OUTPUT 375cc CLEAR YELLOW URINE
--- NOTE | 2019-02-26 15:00 | NUR ---
BP CUFF SWITCHED FROM LEFT ARM TO RIGHT ARM. VSS.
--- NOTE | 2019-02-26 15:36 | NUR ---
PER PT REQUEST, ROOM REARRANGED AND PT MOVED CLOSER TO WINDOW. PT REFUSED O2/NC AT THIS TIME.
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
--- NOTE | 2019-02-26 17:26 | NUR ---
PT SITTING UP IN RECLINER, EATING DINNER.
--- NOTE | 2019-02-26 17:44 | NUR ---
DIETARY @BEDSIDE FOR MEAL PREFERENCES.
--- NOTE | 2019-02-26 18:11 | NUR ---
PT GIVEN CUP OF WATER TO "RINSE THE CHICKEN OUT OF HIS MOUTH". PT ONLY EATING 25% OF MEALS. C/O BLISTERS IN HIS MOUTH. DIETARY CONSULT PLACED.
--- NOTE | 2019-02-26 18:50 | NUR ---
PATIENT ASSISTED TO BSC WITH MAX ASSIST X2. CALL LIGHT WITHIN REACH.
--- NOTE | 2019-02-26 19:10 | NUR ---
PATIENT WAS NOT ABLE TO HAVE A BOWEL MOVEMENT, SAFELY TRANSFERRED TO BED WITH 2 PERSON ASSIST, HE IS NOW SITTING ON EDGE OF BED PER REQUEST. ON ROOM AIR, SATS 93%, AGAIN DUE TO HIS COLD FINGERS THE PULSE OXIMETER IS NOT ABLE TO FIND A REASONABLE READING AT TIMES. HE IS AFIB ON TELEMETRY, HR 133 BPM. NO SHORTNESS OF BREATH NOTED. LUNGS SOUNDS CLEAR IN UPPER LUNGS AND DIMISNISHED AT BASES. ALERT AND ORIENTED X4. ABDOMEN SOFT AND ACTIVE BOWEL SOUNDS. RADIAL AND PEDAL PULSES PRESENT AND STRONG. 2+ BLE EDEMA, BLE WITH DRESSING INTACT, NO DRAINAGE NOTED THROUGH THE DRESSINGS, HAS NYLON SOCKS IN PLACE. RIJ TRIPLE LUMEN INTACT, FLUSHES, AND RETURNS BLOOD PROPERLY. BUMEX DRIP IS INFUSING AT 5ML/HR OR 0.5MG/HR. PATIENT COMPLAINS OF SORES IN HIS MOUTH FROM HIS FLUID RESTRICTION, I EXAMINED HIS TONGUE AND MOUTH, NO SORES PRESENT JUST DRYNESS AND CHAPPED LIPS WHICH HE HAS CHAP STICK AT BEDSIDE THAT HE APPLIES NEEDED. PATIENT HAS BEEN EDUCATED ON HIS FLUID RESTRICTION WHICH HE HAS BEEN EXPRESSING HIS CONCERN ABOUT IT AND HE REPORTS HE JUST WANTS TO LEAVE. PATIENT COMPLAINS OF 9/10 PAIN ON FEET, NECK, BACK, I WILL BE GIVING PERCOCET AVAILABLE. I HAVE ALSO SUPPLIED MOUTH SWABS TO HELP WITH HIS DRY MOUTH. CALL LIGHT WITHIN REACH. WILL CONTINUE TO MONITOR.
--- NOTE | 2019-02-26 20:00 | NUR ---
PATIENT ABLE TO VOID 175ML, CLEAR AND YELLOW URINE IN URINAL, PATIENT NOW LYING WITH HOB 45 DEGREES. SHORT OF BREATH WITH EXERTION. CALL LIGHT WITHIN REACH.
--- NOTE | 2019-02-26 21:20 | NUR ---
2100 MEDICATIONS GIVEN WITH SMALL AMOUNT OF WATER. PATIENT NOWON 1.5 LITERS/MIN NASAL CANNULA, SATS 96%, WARM BLANKET PROVIDED PER REQUEST. CALL LIGHT WITHIN REACH. WILL CONTINUE TO MONITOR.
--- NOTE | 2019-02-26 22:00 | NUR ---
PATIENT HELPED TO SIT ON EDGE OF BED TO USE URINAL. HE FREQUENTLY REMARKS, I CAN'T DO IT ESTHER," AND CURSES, WHEN HE IS ABLE TO PEFORM HIS TASKS WITHOUT DIFFICULTY. ON NASAL CANNULA AT 1.5L/MIN, SHORT OF BREATH WITH EXERTION NOTED, SATS 97%. BLE ELEVATED WITH PILLOWS. HOB 45 DEGREES. CALL LIGHT WITHIN REACH.
[2019-02-27] VITALS (18 sets, daily range): BP systolic 95–141; BP diastolic 59–81
--- NOTE | 2019-02-27 00:10 | NUR ---
PATIENT SLEEPING, ON 1.5L/MIN NASAL CANNULA, NO SHORTNESS OF BREATH NOTED, SATS 96 %. NO NEEDS AT THIS TIME, AFEBRILE. AFIB WITH PVC'S 133 BPM. BLE ELEVATED WITH PILLOWS. CALL LIGHT WITHIN REACH. WILL CONTINUE TO MONITOR.
--- NOTE | 2019-02-27 02:00 | NUR ---
PATIENT SLEEPING. ON 1.5 L/MIN NASAL CANNULA, NO ACUTE DISTRESS SHOWN. NO NEEDS AT THIS TIME, CALL LIGHT WITHIN REACH. WILL CONTINUE TO MONITOR.
--- NOTE | 2019-02-27 04:15 | NUR ---
PATIENT SLEEPING, EASILY AROUSES. ON 1.5 L/MIN NASAL CANNULA, NO ACUTE DISTRESS SHOWN, NO SHORTNESS OF BREATH, NO COMPLAINTS OF PAIN. AFEBRILE. SATS 95%. NO NEEDS AT THIS TIME. BUMEX DRIP INFUSING PROPERLY. NO CHANGES. BLE REMAIN ELEVATED WITH PILLOWS. CALL LIGHT WITHIN REACH.
[2019-02-27 05:16] LABS: HEMATOCRIT 25.4 % (39.0-50.0); HEMOGLOBIN 8.2 g/dl (14.0-18.0); IMMATURE GRANULOCYTES 0.9 % (0.0-5.0); MEAN CELL VOLUME 98.8 fL CALC (80.0-100.0); MEAN CORPUSCULAR HGB 31.9 pG CALC (26.0-32.0); MEAN CORPUSCULAR HGB CONC 32.3 g/L CALC (32.0-36.0); NEUT# 4.04 thou/uL (1.82-7.42); RED BLOOD COUNT 2.57 mill/uL (4.70-6.10); RED CELL DISTRI WIDTH 17.4 % (11.5-15.5)
[2019-02-27 05:22] LABS: ALBUMIN 2.5 g/dL (3.2-5.0); ALKALINE PHOSPHATASE 140 u/l (38-126); ANION GAP 12 (6-22 (CALC)); BILIRUBIN, TOTAL 0.5 mg/dL (0.0-1.4); BUN 20 mg/dL (8-23); BUN/CREATININE RATIO 24 (12-20 (CALC)); CARBON DIOXIDE 34 mmol/l (22-30); CHLORIDE 96 mmol/l (95-108); CREATININE 0.8 mg/dL (0.7-1.3); GFR > 60 ML/MIN (>=60 (CALC)); GFR FOR AFR.AMER. > 60 ML/MIN (>=60 (CALC)); MAGNESIUM 1.4 mg/dL (1.6-2.3); POTASSIUM 3.9 mmol/l (3.5-5.1); SGOT/AST 17 u/l (19-48); SODIUM 138 mmol/l (137-146); TOTAL PROTEIN 6.4 g/dL (6.3-8.2)
--- NOTE | 2019-02-27 06:00 | NUR ---
HOB 45 DEGREES, ON 1.5 L/MIN NASAL CANNULA, NO ACUTE DISTRESS HSOWN, WAS ASSISTED WITH URINAL SET UP TO VOID, CLEAR AND YELLOW URINE. REQUESTED WATER AND WAS REMINDED OF FLUID RESTRICTION. PAIN MEDICATION GIVEN FOR PAIN 05/17. PILLOWS ADJUSTED ON HIS FEET, DRAINAGE NOTED ON DISPOSABLE PAD THAT WAS PLACED UNDER HIS LEGS AND FEET, WILL NOTIFY DAYSHIFT NURSE. NO OTHER NEEDS AT THIS TIME. WILL CONTINUE TO MONITOR, CALL LIGHT WITHIN REACH.
--- NOTE | 2019-02-27 06:45 | NUR ---
recvd report from micha velez at start of shift.
--- NOTE | 2019-02-27 07:01 | NUR ---
pt sleeping while sitting in high fowlers in bed. tv on loud. no s/s of distress at this time. will continue to monitor.
--- NOTE | 2019-02-27 07:03 | NUR ---
wound care not open yet, will call soon to ask for dressing change d/t report of wet bandages.
--- NOTE | 2019-02-27 07:30 | NUR ---
breakfast held until pt wakes up
--- NOTE | 2019-02-27 08:06 | NUR ---
CRITICAL BLOOD CULTURE RESULTS CALLED TO . 2 VIALS GROWING GRAM (+) COCCI, THE PATIENT IS CURRENTLY ON VANCOMYCIN PHARMACY TO DOSE. NO NEW ORDERS AT THIS TIME.
--- NOTE | 2019-02-27 08:24 | NUR ---
LM W/WOUND CARE FOR DRESSING CHANGE. PT AWAKE, SITTING UP, EATING BREAKFAST.
--- NOTE | 2019-02-27 08:30 | NUR ---
PT VERY COMPLIMENTARY OF THIS RN & ALL STAFF AT HOSPITAL. STATES HE IS RECVING GOOD CARE HERE AND THINKS MY HAIR IS PRETTY TODAY. PT STATES PAIN IS A LITTLE BETTER TODAY AT 04/16, INSTEAD OF 06/17 YESTERDAY. PT STATES NO MATTER WHO MUCH MEDS WE GIVE HIM, HE STILL ALWAYS HAS PAIN. PT A&Ox4. YESTERDAY PT SHOWED S/S OF OCCASSIONAL CONFUSION. PT IS HARD OF HEARING, STAFF RAISING VOICE & MUTING TV TO ENSURE COMPREHENSION. PT DENIES PAIN IN LEGS BUT STATES TOES ARE TINGLING. WOUND CARE CALLED. SKIN WARM/DRY, HANDS COLD. EYES PERRLA @2. BREATHING EVEN/UNLABORED, UPPER/MID LUNGS CLEAR, LOWER LOBES DIMINISHED. ABD SOFT/NONTENDER, ACTIVE BS. NO BM SINCE 02/25. SINUS TACH ON TELE @134. DR APONTE AWARE.
--- NOTE | 2019-02-27 09:31 | NUR ---
DR APONTE @BEDSIDE. WOKE PT UP FOR ASSESSMENT.
--- NOTE | 2019-02-27 10:45 | NUR ---
PT SLEEPING IN HIGH FOWLERS IN BED. NO S/S OF DISTRESS. WILL CONTINUE TO MONITOR.
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
--- NOTE | 2019-02-27 11:20 | NUR ---
PT SITTING UP IN BED, EATING LUNCH.
--- NOTE | 2019-02-27 11:31 | NUR ---
PT REQUEST TO SIT ON SIDE OF BED TO EAT LUNCH. PT REPOSITIONED SELF & ARRANGING OWN TRAY.
--- NOTE | 2019-02-27 11:33 | NUR ---
DENIED NEED FOR PT EVAL AT THIS TIME.
--- NOTE | 2019-02-27 12:03 | NUR ---
PT MAX ASSIST x3 FROM BED TO CHAIR. APPROACHED NURSES STATION TO INFORM THIS RN THAT SHE KNOWS MY NAME IS TANNER BUT PT IS VERY HAPPY WITH "ESTHER" SO I SHOULD JUST LEAVE IT IT IS. LINENS CHANGED. PT VERY FREINDLY WITH STAFF.
--- NOTE | 2019-02-27 12:56 | NUR ---
PT ASSISTED WITH COMPLETE BATH. PERICARE DONE. GOWN CHANGED.
--- NOTE | 2019-02-27 13:54 | NUR ---
PT, SITTING IN RECLINER W/FEET UP, & , SITTING IN CHAIR NEXT TO PT, WATCHING TV & CONVERSING ABOUT TV SHOWS. ALL APPEAR HAPPY. NO DYSPNEA WITH COMMUNICATION. PT ON 1.5L NC. WILL CONTINUE TO MONITOR.
--- NOTE | 2019-02-27 14:19 | NUR ---
PT WAS GIVEN A CUP OF WATER TO BRUSH HIS TEETH WITH BUT OBSERVED DRINKING CUP. THEN TOOK A CUP AND FILLED IT UP IN THE SINK AND GAVE IT TO PT TO DRINK. WHEN PT/ ADVISED THAT HE CANT HAVE ALL THAT WATER, PT STATES HE WAS JUST RINSHING HIS MOUTH OUT. PT DID NOT SPIT OUT ANY WATER.
--- NOTE | 2019-02-27 15:18 | NUR ---
pt given jello in between meals.
--- NOTE | 2019-02-27 16:18 | NUR ---
PTS LEFT UPPER ARM PHOTOGRAPHED. REDNESS TO AREA WHERE BP CUFF WAS. UPON PTS C/O YESTERDAY, BP CUFF SWITCHED TO RIGHT ARM ONLY FOR BP THEN REMOVED.
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
--- NOTE | 2019-02-27 17:28 | NUR ---
PT SERVED DINNER IN RECLINER. ALSO GIVEN A LIP BALM BC THE ONE HE'S BEEN USING ISNT WORKING, PER PT. NO OTHER C/O AT THIS TIME, BESIDE FLUID RESTRICTIONS.
--- NOTE | 2019-02-27 18:18 | NUR ---
PT CONCERNED WITH AMOUNT OF FLUIDS HE GOT WITH HIS DINNER. EXPLAINED THE BIG CUPS ARE ACTUALLY 240ml SO THEY ARENT SUPPOSED TO BE FILLED. BEFORE I PLACED PTS TRAY IN FRONT OF HIM FOR DINNER, I EXPLAINED THAT HE HAD 200ml OF TEA IN HIS CUP. AFTER DINNER, WHEN I WENT IN TO CLEAR TRAY, PT STARTED C/O AGAIN ABOUT US SHORT CHANGING HIM. EDUCATED PT AGAIN. REMINDED PT OF FLUID RESTRICTIONS. PT STARTING TO GET ANGRY THAT HE SHOULD AT LEAST BE COMFORTABLE.
--- NOTE | 2019-02-27 19:00 | NUR ---
BEDSIDE REPORT RECEIVED FROM LANA HART.
--- NOTE | 2019-02-27 19:54 | NUR ---
PT SITTING UP IN RECLINER WATCHING TV; ALERT AND ORIENTED. C/O MODERATE GENERALIZED PAIN IN HANDS, FEET, NECK, BACK, ETC. RESPIRATIONS EVEN AND UNLABORED ON ROOM AIR. VS STABLE. CEFEPIME COMPLETE AND VANCO NOW INFUSING INTO RIGHT IJ; DRESSING CDI. LUNGS CLEAR/DIMINISHED IN BASES. UNNA BOOT DRESSINGS INTACT TO BLE. PLAN OF CARE REVIEWED. PT ENCOURAGED TO VERBALIZE CONCERNS. STATES UNDERSTANDING AND REQUESTS MORE TO DRINK; EXPLAINED FLUID RESTRICTION AND PROVIDED SMALL CUP OF WATER. CALL LIGHT SYSTEM REVIEWED AND WITHIN REACH.
--- NOTE | 2019-02-27 20:58 | NUR ---
HS MEDICATIONS ADMINSITERED; PT SWALLOWED WITHOUT DIFFICULTY. REMAINS UP IN RECLINER. NO REQUESTS OR CONCERNS AT THIS TIME.
--- NOTE | 2019-02-27 21:26 | NUR ---
PT REPOSITIONED INTO BED SEMI FOWLERS; BUNNY BOOTS APPLIED. SINUS TACH ON TELEMETRY.
--- NOTE | 2019-02-27 22:15 | NUR ---
PT REQUESTED PERCOCET FOR FEET PAIN /; REPORTS THAT THE MORHINE WAS INEFFECTIVE AND IS USUALLY INEFFECTIVE WHEN HE TAKES IT AT HOME. PERCOCET GIVEN. PT REAPPLIED OXYGEN AT 1.5L VIA NC AT HS. VOIDING IN URINAL AT THIS TIME. VANCO COMPLETE; 2/3 LUMENS FLUSH ON RIGHT IJ; UNABLE TO FLUSH WHITE LUMEN.
[2019-02-28] VITALS (9 sets, daily range): BP systolic 88–105; BP diastolic 56–71
--- NOTE | 2019-02-28 00:36 | NUR ---
PT ASLEEP WITH NO SIGNS OF DISTRESS; RESPIRATIONS EVEN AND UNLABORED ON OXYGEN; TITRATED TO 2L FOR OXYGEN SATURATIONS FROM 87-90%. AWAKENS TO TACTILE STIMULI. BLOOD PRESSURE DOWN TO 89/61; ASYMPTOMATIC AND TEMP 99.0. CONTINUES TO USE URINAL TO VOID; 2 PERSON ASSIST FOR TRANSFERS. SAFETY MEASURES IN PLACE. CALL LIGHT WITHIN REACH.
--- NOTE | 2019-02-28 02:10 | NUR ---
CEFEPIME INFUSING WITHOUT DIFFICULTY. PT AWAKE TO VOID. ASSISTED WITH BLANKETS AND REPOSITIONING. REQUESTED BUNNY BOOTS BE REMOVED FOR NOW. BLOOD PRESSURE INCREASING ALMOST WNL.
--- NOTE | 2019-02-28 04:50 | NUR ---
LABS DRAWN FROM CENTRAL LINE. PT ASLEEP. BLOOD PRESSURE CURRENLTY 88/64; WILL CONTINUE TO MONITOR.
[2019-02-28 05:08] LABS: HEMATOCRIT 25.7 % (39.0-50.0); HEMOGLOBIN 8.2 g/dl (14.0-18.0); IMMATURE GRANULOCYTES 0.7 % (0.0-5.0); MEAN CELL VOLUME 99.6 fL CALC (80.0-100.0); MEAN CORPUSCULAR HGB 31.8 pG CALC (26.0-32.0); MEAN CORPUSCULAR HGB CONC 31.9 g/L CALC (32.0-36.0); NEUT# 4.15 thou/uL (1.82-7.42); RED BLOOD COUNT 2.58 mill/uL (4.70-6.10); RED CELL DISTRI WIDTH 17.3 % (11.5-15.5)
[2019-02-28 05:23] LABS: ALBUMIN 2.4 g/dL (3.2-5.0); ALKALINE PHOSPHATASE 128 u/l (38-126); ANION GAP 10 (6-22 (CALC)); BILIRUBIN, TOTAL 0.4 mg/dL (0.0-1.4); BUN 22 mg/dL (8-23); BUN/CREATININE RATIO 24 (12-20 (CALC)); CARBON DIOXIDE 33 mmol/l (22-30); CHLORIDE 98 mmol/l (95-108); CREATININE 0.9 mg/dL (0.7-1.3); GFR > 60 ML/MIN (>=60 (CALC)); GFR FOR AFR.AMER. > 60 ML/MIN (>=60 (CALC)); MAGNESIUM 1.7 mg/dL (1.6-2.3); SGOT/AST 18 u/l (19-48); SODIUM 137 mmol/l (137-146); TOTAL PROTEIN 6.4 g/dL (6.3-8.2)
--- NOTE | 2019-02-28 06:45 | NUR ---
RECVD REPORT FROM LANA GARCIA AT START OF SHIFT.
--- NOTE | 2019-02-28 06:53 | NUR ---
PT SITTING UP IN BED, SLEEPING. NO S/S OF DISTRESS AT THIS TIME. WILL HOLD BREAKFAST UNTIL PT WAKES UP.
--- NOTE | 2019-02-28 08:30 | NUR ---
PT AWAKE & ALERT x4. USING URINAL WHILE SITTING UP IN BED. LABS DRAW FROM CENTRAL LINE FOR VANCO TROUGH. WHITE LUMEN NOT FLUSHABLE, HARD RESISTENCE. BREAKFAST TRAY SET UP. PT APPEARS TO BE IN A GOOD MOOD.
--- NOTE | 2019-02-28 09:31 | NUR ---
SPOKE WITH KEDNRA, IN PHARMACY, RE: HIGH VANCO TROUGH. ADVISED TO HOLD AM VANCO UNTIL SHE SPEAKS WITH DR APONTE.
--- NOTE | 2019-02-28 10:04 | NUR ---
PT MEDICATED FOR PAIN & AM MEDS, WITH LACTULOSE FOR NO BM SINCE 02/25/19. TYLER @BEDSIDE FOR PTS INPUT. PT WOKEN UP FOR MEDICATION PASS.
--- NOTE | 2019-02-28 10:09 | NUR ---
HOUSEKEEPING IN ROOM FOR CLEANING
--- NOTE | 2019-02-28 10:13 | NUR ---
DR APONTE @BEDSIDE. WILL PLACE ORDER FOR PICC LINE SO PT CAN COME BACK FOR IV ABX THERAPY. CAN DC TODAY AFTER WOUND CARE BANDAGE CHANGE.
--- NOTE | 2019-02-28 10:30 | NUR ---
IV THERAPY SET UP F/UP APPTS FOR PT EVERY DAY AT 11:00 FOR OUT PT ABX.
--- NOTE | 2019-02-28 10:57 | NUR ---
AUX HERE FOR PT TRANSPORT TO RADIOLOGY FOR PICC INSERTION. PT ASSISTED x2 TO WC. OFF UNIT IN STABLE CONDITION WITH O2.
--- NOTE | 2019-02-28 11:21 | NUR ---
WOUND CARE WILL BE BY LATER TODAY. AWARE OF DC.
--- NOTE | 2019-02-28 11:53 | NUR ---
ADALBERTO, CASE MANAGEMENT, WILL CALL & SET UP HOME HEALTH TO GIVE PT IV ABX OUTPT.
--- NOTE | 2019-02-28 11:59 | NUR ---
PT RETURNED TO ICU 3.
[2019-02-28] MEDS ORDERED: LOPRESSOR 550 MG/TAB PO (12:15)
[2019-02-28] MEDS ORDERED: BUMETANIDE1 MG PO (12:16)
--- NOTE | 2019-02-28 12:16 | NUR ---
PT SITTING ON SIDE OF BED, EATING LUNCH. @BEDSIDE. PT/ UPDATED ON IVT. PT C/O HIS LUNCH TRAY-NOT ENOUGH SUGAR OR BUTTER, FOOD MAKES HIM THIRSTIER. ACCUSING STAFF OF SHORT CHANGING HIM DRINK.
[2019-02-28] MEDS ORDERED: CEFEPIME2 G2 IV (12:17)
--- NOTE | 2019-02-28 12:20 | NUR ---
MAYE GLOVER, @BEDSIDE WITH PT/. STATES PT HAS APPT AT WOUND CARE AT 1:00 TODAY.
--- NOTE | 2019-02-28 12:25 | NUR ---
PT STATES HIS FOOD IS TOO SALTY. STATES, SHE TASTED IT AND ITS NOT SALTY AT ALL. PT STATES HES SUPPOSED TO BE ON A LOW SALT DIET BUT HE'S LEAVING SOON ANYWAY AND WILL DO WHATEVER HE WANTS.
--- NOTE | 2019-02-28 12:33 | NUR ---
PT REPOSITIONED HIMSELF BACK IN BED.
--- NOTE | 2019-02-28 12:56 | NUR ---
CENTRAL LINE DC'D, TIP INTACT, PRESSURE DRESSING APPLIED. PT MEDICATED WITH LACTULOSE & GIVEN A WARM CUP OF PRUNE JUICE. DR APONTE REQUEST PT HAVE BM PRIOR TO DC TODAY. STILL AT BEDSIDE. ALSO WAITING ON WOUND CARE PRIOR TO DC. ROOM REORGANIZED TO ACCOMMADATE BSC.
--- NOTE | 2019-02-28 13:06 | NUR ---
LOOKING OUT THE WINDOW FOR WOUND CARE TO COME. PT YELLING FOR ME TO CALL THEM ALREADY.
--- NOTE | 2019-02-28 14:23 | NUR ---
WOUND CARE @BEDSIDE WITH PT/. REMOVED OLD BANDAGE. APPLIED NEW UNNABOOT DRESSING. ADVISED PT/ NEXT APPT AT WOUND CARE IS NEXT SUNDAY AT 1300. LEGS/FEET & GROIN PHOTOGRAPHED. PT REMINDED HE STILL NEEDS A BM BEFORE DC.
--- NOTE | 2019-02-28 15:14 | NUR ---
PT UP TO RECLINER BY WINDOW BY REQUEST BY MAX ASSIST x2 & WALKER. STILL @BEDSIDE. PT AWARE HE NEEDS TO HAVE A BM PRIOR TO DC.
--- NOTE | 2019-02-28 15:43 | NUR ---
PT BECOMING ARGUMENTATIVE WITH STAFF. ASKED TO LEAVE HIS NEW PICC LINE ALONE, PT REPEATEDLY PICKING AT AREA. PT REFUSING TO PUT HIS FEET UP IN RECLINER BC HE WANTS THEM IN THE SUN FROM THE WINDOW. PT REFUSED BLANKET SAYING "YOU DONT KNOW WHO YOU'RE MESSING WITH".
--- NOTE | 2019-02-28 16:10 | NUR ---
DR APONTE CONTACTED, PER PT REQUEST, TO ASK IF PT CAN GO HOME W/OUT BM. PT STATES HE HAS CHRONIC OIC D/T HOME PAIN MEDS. DR APONTE GAVE VERBAL APPROVAL.
--- NOTE | 2019-02-28 16:31 | NUR ---
PT/ EDUCATED ON DC INSTRUCTIONS, F/UP CARE, RX, DIETARY RESTRICTIONS, & APPT DATES/TIMES. NO QUESTIONS ASKED. LAST IV ABX GIVEN.
--- NOTE | 2019-02-28 16:37 | NUR ---
ADALBERTO "TATI POLANCO" @BEDSIDE FOR FINAL INSTRUCTIONS.
--- NOTE | 2019-02-28 16:53 | NUR ---
PT ASSISTED DOWNSTAIRS BY WC WITH 02 IN STABLE CONDITION FOR DC. ACCOMPANIED BY HOUSE SUP & SALES INTERN FOR TRANSFER INTO CAR. PT/ VERY APPRECIATIVE OF STAFF. PT NOW JOKING WITH STAFF, EVEN TOLD THIS RN THAT HE LOVED HER.
== END 2019-02-28 16:53 | DRG 292 ==
LOC: ED 16:37 → ED-I 18:08 → ED 18:33 → ICU 18:34
PROVIDERS: ADMIT Internal Medicine Nephrology; ATTEND Internal Medicine Nephrology
PROC: 05HM33Z Insertion of Infusion Device into Right Internal Jugular Vein, Percutaneous Approach (ICD-10-PCS; 2019-02-24)
PROC: 2W1RX6Z Compression of Left Lower Leg using Pressure Dressing (ICD-10-PCS; principal; 2019-02-26)
PROC: 2W1QX6Z Compression of Right Lower Leg using Pressure Dressing (ICD-10-PCS; 2019-02-26)
PROC: 02HV33Z Insertion of Infusion Device into Superior Vena Cava, Percutaneous Approach (ICD-10-PCS; 2019-02-28)
PROC: B518ZZA Fluoroscopy of Superior Vena Cava, Guidance (ICD-10-PCS; 2019-02-28)
DX: I11.0 Hypertensive heart disease with heart failure (principal); L97.929 Non-pressure chronic ulcer of unspecified part of left lower leg with unspecified severity; L03.116 Cellulitis of left lower limb; L03.115 Cellulitis of right lower limb; E87.1 Hypo-osmolality and hyponatremia; I87.312 Chronic venous hypertension (idiopathic) with ulcer of left lower extremity; I50.23 Acute on chronic systolic (congestive) heart failure; I95.89 Other hypotension; I25.10 Atherosclerotic heart disease of native coronary artery without angina pectoris; E78.5 Hyperlipidemia, unspecified; I48.2 Chronic atrial fibrillation; J44.9 Chronic obstructive pulmonary disease, unspecified; M15.0 Primary generalized (osteo)arthritis; E03.9 Hypothyroidism, unspecified; D51.9 Vitamin B12 deficiency anemia, unspecified; E77.8 Other disorders of glycoprotein metabolism; B96.5 Pseudomonas (aeruginosa) (mallei) (pseudomallei) as the cause of diseases classified elsewhere; Z91.11 Patient's noncompliance with dietary regimen; Z95.5 Presence of coronary angioplasty implant and graft; Z85.46 Personal history of malignant neoplasm of prostate; Z79.01 Long term (current) use of anticoagulants; Z87.891 Personal history of nicotine dependence; Z96.0 Presence of urogenital implants
CPT/HCPCS: J0692; J3370; J3475

== ENCOUNTER 2019-06-16 13:25 | Inpatient (IN) | payer MEDICARE, OTHER ==
[2019-06-16] VITALS (10 sets, daily range): BP systolic 75–127; BP diastolic 50–86
[~2019-06-16] VITALS: Ht 193 cm; Wt 108.4 kg
[~2019-06-16 13:25] MED LIST changes: +CEFEPIME2 G2 IV; +CEPHALEXIN500 MG PO; -FLONASE AL50 MCG/ACT; +FLONASE AL50 MCG/ACT NAB; +LEVOTHYROXIN150 MCG PO; +LOPRESSOR 550 MG/TAB PO; +MAGNESIUM250 M1 PO; +TRAZODONE50 MG PO; +TYLENOL 8 HOUR650 MG PO; +VITAMIN C500 MG PO
[2019-06-16] MEDS ORDERED: CYMBALTA30 MG PO (14:14)
[2019-06-16] MEDS ORDERED: B-12250 MCG PO (14:14)
[2019-06-16] MEDS ORDERED: COLACE100 MG PO (14:15)
[2019-06-16] MEDS ORDERED: PANTOPRAZOLE SO40 M1 PO (14:16)
[2019-06-16] MEDS ORDERED: ALLOPURINOL300 MG PO (14:17)
[2019-06-16] MEDS ORDERED: BUMETANIDE1 MG PO (14:18)
[2019-06-16] MEDS ORDERED: OXYCODONE15 MG PO (14:19)
[2019-06-16] MEDS ORDERED: LOPRESSOR 550 MG/TAB PO (14:20)
[2019-06-16 14:42] LABS: HEMATOCRIT 24.3 % (39.0-50.0); HEMOGLOBIN 8.1 g/dl (14.0-18.0); IMMATURE GRANULOCYTES 0.6 % (0.0-5.0); MEAN CELL VOLUME 106.1 fL CALC (80.0-100.0); MEAN CORPUSCULAR HGB 35.4 pG CALC (26.0-32.0); MEAN CORPUSCULAR HGB CONC 33.3 g/L CALC (32.0-36.0); NEUT# 7.74 thou/uL (1.82-7.42); RED BLOOD COUNT 2.29 mill/uL (4.70-6.10); RED CELL DISTRI WIDTH 16.7 % (11.5-15.5)
[2019-06-16 15:05] LABS: INTERNATIONAL NORMALIZED RATIO 1.2 RATIO (0.7-1.3); PROTHROMBIN TIME 12.2 SECONDS (9.0-12.5)
[2019-06-16 15:31] LABS: ANION GAP 9 (6-22 (CALC)); BUN 34 mg/dL (8-23); BUN/CREATININE RATIO 25 (12-20 (CALC)); CARBON DIOXIDE 30 mmol/l (22-30); CHLORIDE 96 mmol/l (95-108); CREATININE 1.4 mg/dL (0.7-1.3); GFR 50 ML/MIN (>=60 (CALC)); GFR FOR AFR.AMER. > 60 ML/MIN (>=60 (CALC)); POTASSIUM 4.1 mmol/l (3.5-5.1); SODIUM 131 mmol/l (137-146)
[2019-06-16 23:30] LABS: URINE BILIRUBIN - DIPSTICK NEGATIVE (NEGATIVE); URINE BLOOD DIPSTICK TRACE-INTACT (NEGATIVE); URINE COLOR YELLOW; URINE GLUCOSE - DIPSTICK NEGATIVE (NEGATIVE); URINE KETONE NEGATIVE (NEGATIVE); URINE LEUK ESTERASE NEGATIVE (NEGATIVE); URINE NITRITE - DIPSTICK NEGATIVE (Negative); URINE PROTEIN - DIPSTICK NEGATIVE (NEG-TRACE); URINE SPECIFIC GRAVITY <=1.005; URINE UROBILINOGEN - DIPSTICK 0.2 E.U./dL (0.2)
[2019-06-17] VITALS (117 sets, daily range): BP systolic 72–133; BP diastolic 39–89
[2019-06-17 07:01] LABS: HEMATOCRIT 23.5 % (39.0-50.0); HEMOGLOBIN 7.7 g/dl (14.0-18.0); MEAN CELL VOLUME 106.3 fL CALC (80.0-100.0); MEAN CORPUSCULAR HGB 34.8 pG CALC (26.0-32.0); MEAN CORPUSCULAR HGB CONC 32.8 g/L CALC (32.0-36.0); RED BLOOD COUNT 2.21 mill/uL (4.70-6.10); RED CELL DISTRI WIDTH 16.8 % (11.5-15.5)
[2019-06-17 07:07] LABS: ANION GAP 8 (6-22 (CALC)); BUN 24 mg/dL (8-23); BUN/CREATININE RATIO 24 (12-20 (CALC)); CARBON DIOXIDE 29 mmol/l (22-30); CHLORIDE 102 mmol/l (95-108); GFR > 60 ML/MIN (>=60 (CALC)); GFR FOR AFR.AMER. > 60 ML/MIN (>=60 (CALC)); POTASSIUM 3.7 mmol/l (3.5-5.1); SODIUM 135 mmol/l (137-146)
[2019-06-18] VITALS (11 sets, daily range): BP systolic 90–120; BP diastolic 54–78
[2019-06-18 05:36] LABS: HEMATOCRIT 24.1 % (39.0-50.0); MEAN CORPUSCULAR HGB 34.2 pG CALC (26.0-32.0); MEAN CORPUSCULAR HGB CONC 33.2 g/L CALC (32.0-36.0); RED BLOOD COUNT 2.34 mill/uL (4.70-6.10); RED CELL DISTRI WIDTH 19.2 % (11.5-15.5)
[2019-06-18 06:02] LABS: ANION GAP 8 (6-22 (CALC)); BUN 19 mg/dL (8-23); BUN/CREATININE RATIO 20 (12-20 (CALC)); CARBON DIOXIDE 30 mmol/l (22-30); CHLORIDE 103 mmol/l (95-108); CREATININE 0.9 mg/dL (0.7-1.3); GFR > 60 ML/MIN (>=60 (CALC)); GFR FOR AFR.AMER. > 60 ML/MIN (>=60 (CALC)); POTASSIUM 3.7 mmol/l (3.5-5.1); SODIUM 137 mmol/l (137-146)
[2019-06-19 05:08] VITALS: BP 122/78
[2019-06-19 05:24] LABS: HEMATOCRIT 26.3 % (39.0-50.0); HEMOGLOBIN 8.8 g/dl (14.0-18.0); MEAN CORPUSCULAR HGB 34.8 pG CALC (26.0-32.0); MEAN CORPUSCULAR HGB CONC 33.5 g/L CALC (32.0-36.0); RED BLOOD COUNT 2.53 mill/uL (4.70-6.10); RED CELL DISTRI WIDTH 18.7 % (11.5-15.5)
[2019-06-19 05:43] LABS: ANION GAP 12 (6-22 (CALC)); BUN 17 mg/dL (8-23); BUN/CREATININE RATIO 18 (12-20 (CALC)); CARBON DIOXIDE 28 mmol/l (22-30); CHLORIDE 102 mmol/l (95-108); GFR > 60 ML/MIN (>=60 (CALC)); GFR FOR AFR.AMER. > 60 ML/MIN (>=60 (CALC)); POTASSIUM 4.1 mmol/l (3.5-5.1); SODIUM 138 mmol/l (137-146)
[2019-06-19 08:15] VITALS: BP 102/58
[2019-06-19] MEDS ORDERED: DOXYCYCL HYC100 MG PO (08:54)
[2019-06-19 09:16] VITALS: BP 102/58
== END 2019-06-19 10:10 | disposition home or self-care (01) | DRG 871 ==
LOC: ED 13:25 → ED-I 16:16 → ED 17:00 → ICU 17:01 → MS2 06-18 11:22
PROVIDERS: Family Medicine; ADMIT Internal Medicine; ATTEND Internal Medicine
PROC: 02HV33Z Insertion of Infusion Device into Superior Vena Cava, Percutaneous Approach (ICD-10-PCS; principal; 2019-06-16)
PROC: 30233N1 Transfusion of Nonautologous Red Blood Cells into Peripheral Vein, Percutaneous Approach (ICD-10-PCS; 2019-06-17)
DX: A41.9 Sepsis, unspecified organism (principal); R65.21 Severe sepsis with septic shock; J18.9 Pneumonia, unspecified organism; J44.0 Chronic obstructive pulmonary disease with (acute) lower respiratory infection; N17.9 Acute kidney failure, unspecified; I48.92 Unspecified atrial flutter; L97.929 Non-pressure chronic ulcer of unspecified part of left lower leg with unspecified severity; L97.919 Non-pressure chronic ulcer of unspecified part of right lower leg with unspecified severity; I95.9 Hypotension, unspecified; I11.0 Hypertensive heart disease with heart failure; I50.9 Heart failure, unspecified; D64.9 Anemia, unspecified; I48.0 Paroxysmal atrial fibrillation; E86.0 Dehydration; I25.10 Atherosclerotic heart disease of native coronary artery without angina pectoris; E78.5 Hyperlipidemia, unspecified; M15.9 Polyosteoarthritis, unspecified; Z95.5 Presence of coronary angioplasty implant and graft; Z85.46 Personal history of malignant neoplasm of prostate; Z87.891 Personal history of nicotine dependence
CPT/HCPCS: P9016